=== PATIENT | female | born 1955 | race Caucasian/White ===

== ENCOUNTER → 2018-03-10 06:58 | Outpatient (CLI) | payer OTHER, SELFPAY ==
--- NOTE | 2018-03-10 07:02 | BI_ITS ---
MAMMOGRAPHY - BILATERAL SCREENING REASON FOR EXAM: Female, 63 years old. Routine annual screening examination. PERTINENT HISTORY: Non-contributory. History of lymphoma. TECHNIQUE: Digital bilateral breast jasmine (3D mammographic acquisition) in the CC and MLO projections. 2-D mediolateral oblique (MLO) and craniocaudad (CC) views of both breasts were obtained. CAD: Full Field Digital Mammography with Computer Added Detection was performed. COMPARISON: Comparison is made with prior examination of January 13, 2017. FINDINGS: Breast Composition: There are scattered areas of fibroglandular density. There are no dominant masses or suspicious calcifications. The previously seen enlarged left axillary lymph node is not seen at this time and most likely secondary to prior surgical resection versus treatment. No other significant abnormalities are identified. There has been no significant change since the prior study. BI/SCREENING MAMM (CAD), BILAT IMPRESSION: Stable bilateral screening mammogram. Yearly follow-up mammogram recommended. (A) ASSESSMENT CATEGORY: BIRADS Category 1: Negative. A letter regarding these results will be sent to the patient by the facility within 30 days. Approximately 10% of breast cancers are not detected by mammography. A normal mammogram should not delay biopsy of a clinically suspicious abnormality. [id number] Electronically Signed: Juan Rivera MD at 8:53 EDT Tel [phone], Service support ,
== END ==
PROVIDERS: Visit Provider Nurse Practitioner Women's Health
DX: Z12.31 Encounter for screening mammogram for malignant neoplasm of breast (principal)
CPT/HCPCS: 77063; 77067

== ENCOUNTER → 2018-03-23 19:10 | Outpatient (CLI) | payer OTHER, SELFPAY ==
[2018-03-28 10:07] LABS: HPV APTIMA, High Risk Negative (Negative)
== END ==
PROVIDERS: Visit Provider Nurse Practitioner Women's Health
DX: Z12.4 Encounter for screening for malignant neoplasm of cervix (principal)
CPT/HCPCS: 88175; G0145

== ENCOUNTER → 2019-01-24 14:43 | Outpatient (CLI) | payer OTHER, SELFPAY ==
[2019-01-24 14:09] VITALS: BMI 24.0
[2019-01-24 16:19] LABS: HIV - WCH Non-Reactive (Nonreactive)
[2019-01-24 18:44] LABS: Chlamydia Trachomatis by PCR Negative (Negative); Neisserai gonorrhoeae by PCR Negative (Negative); Probe Check PASS; Sample Adequacy Control PASS; Specimen Processing Control PASS
[2019-01-27 03:06] LABS: HCV Quant. RNA PCR HCV Not Detected IU/mL (.)
[2019-01-27 14:30] LABS: HEPATITIS B SURFACE AG Negative (Negative); HSV 1 IgG 2.12 index (0.00-0.90); HSV 2 IgG 8.72 index (0.00-0.90)
[2019-01-28 03:28] LABS: Rapid Plasmin Reagin (RPR) NONREACTIVE (NONREACTIVE)
== END ==
PROVIDERS: Family Provider Internal Medicine; PCP Internal Medicine; Referring Provider Nurse Practitioner Women's Health; Visit Provider Nurse Practitioner Women's Health
DX: Z11.3 Encounter for screening for infections with a predominantly sexual mode of transmission (principal)
CPT/HCPCS: 36415; 86592; 86695; 86696; 86703; 87340; 87491; 87522; 87591

== ENCOUNTER → 2020-05-18 07:45 | Outpatient (CLI) | payer OTHER, SELFPAY ==
[2019-01-24 14:09] VITALS: BMI 24.0
--- NOTE | 2020-05-18 07:57 | BI_ITS ---
MAMMOGRAPHY - BILATERAL SCREENING REASON FOR EXAM: Female, 65 years old. Routine annual screening examination. PERTINENT HISTORY: Non-contributory. History of lymphoma. TECHNIQUE: Digital bilateral breast margi (3D mammographic acquisition) in the CC and MLO projections. 2-D mediolateral oblique (MLO) and craniocaudad (CC) views of both breasts were obtained. CAD: Full Field Digital Mammography with Computer Added Detection was performed. COMPARISON: Comparison is made with prior study dated 03/10/2018. FINDINGS: Breast Composition: There are scattered areas of fibroglandular density. There are no dominant masses or suspicious calcifications. No other significant abnormalities are identified. There has been no significant change since the prior study. BI/SCREEN MAMM (CAD) W/MARGI BILAT IMPRESSION: Stable bilateral screening mammogram. Yearly follow-up mammogram recommended. (A) ASSESSMENT CATEGORY: BIRADS Category 1: Negative. A letter regarding these results will be sent to the patient by the facility within 30 days. Approximately 10% of breast cancers are not detected by mammography. A normal mammogram should not delay biopsy of a clinically suspicious abnormality. [id number] Electronically Signed: Juan Rivera, at 8:58 EDT , Service support ,
== END ==
PROVIDERS: PCP Internal Medicine; Referring Provider Nurse Practitioner Women's Health; Visit Provider Nurse Practitioner Women's Health
DX: Z12.31 Encounter for screening mammogram for malignant neoplasm of breast (principal)
CPT/HCPCS: 77063; 77067

== ENCOUNTER → 2020-05-30 | Outpatient (CLI) | payer OTHER, SELFPAY ==
[2020-05-30 15:17] VITALS: BMI 24.0
== END | disposition home or self-care (01) ==
LOC: LABSPEC 18:14
PROVIDERS: PCP Internal Medicine; Visit Provider Nurse Practitioner Women's Health
DX: N39.0 Urinary tract infection, site not specified (principal)
CPT/HCPCS: 87077; 87086; 87088; 87186

== ENCOUNTER → 2021-05-23 08:19 | Outpatient (CLI) | payer OTHER, SELFPAY ==
--- NOTE | 2021-05-23 08:21 | BI_ITS ---
MAMMOGRAPHY - BILATERAL SCREENING REASON FOR EXAM: Female, 66 years old. Routine annual screening examination. PERTINENT HISTORY: Non-contributory. Personal history of prior lymphoma. TECHNIQUE: Digital bilateral breast margi (3D mammographic acquisition) in the CC and MLO projections. 2-D mediolateral oblique (MLO) and craniocaudad (CC) views of both breasts were obtained. CAD: Full Field Digital Mammography with Computer Added Detection was performed. COMPARISON: Comparison is made with prior examination dated 05/18/2020 and 03/10/2018. FINDINGS: Breast Composition: There are scattered areas of fibroglandular density. There are no dominant masses or suspicious calcifications. No other significant abnormalities are identified. There has been no significant change since the prior study. BI/SCRN MAMM (CAD)W/MARGI BILAT IMPRESSION: Stable bilateral screening mammogram. Yearly follow-up mammogram recommended. (A) ASSESSMENT CATEGORY: BIRADS Category 1: Negative. A letter regarding these results will be sent to the patient by the facility within 30 days. Approximately 10% of breast cancers are not detected by mammography. A normal mammogram should not delay biopsy of a clinically suspicious abnormality. [id number] Electronically Signed: Juan Rivera MD at 9:05 EDT , Service support ,
== END ==
PROVIDERS: PCP Internal Medicine; Referring Provider Nurse Practitioner Women's Health; Visit Provider Nurse Practitioner Women's Health
DX: Z12.31 Encounter for screening mammogram for malignant neoplasm of breast (principal)
CPT/HCPCS: 77063; 77067

== ENCOUNTER → 2022-09-02 | Outpatient (CLI) | payer OTHER, SELFPAY ==
--- NOTE | 2022-09-02 08:00 | BI_ITS ---
MAMMOGRAPHY - BILATERAL SCREENING REASON FOR EXAM: Female, 67 years old. Routine annual screening examination. PERTINENT HISTORY: Non-contributory. TECHNIQUE: Digital bilateral breast margi (3D mammographic acquisition) in the CC and MLO projections. 2-D mediolateral oblique (MLO) and craniocaudad (CC) views of both breasts were obtained. CAD: Full Field Digital Mammography with Computer Added Detection was performed. COMPARISON: Comparison is made with prior examination dated 07/23/2021 05/18/2001. FINDINGS: Breast Composition: There are scattered areas of fibroglandular density. There are no dominant masses or suspicious calcifications. No other significant abnormalities are identified. There has been no significant change since the prior study. BI/SCRN MAMM (CAD)W/MARGI BILAT IMPRESSION: Stable bilateral screening mammogram. Yearly follow-up mammogram recommended. (A) ASSESSMENT CATEGORY: BIRADS Category 1: Negative. A letter regarding these results will be sent to the patient by the facility within 30 days. Approximately 10% of breast cancers are not detected by mammography. A normal mammogram should not delay biopsy of a clinically suspicious abnormality. [id number] Electronically Signed: Juan Rivera MD at 10:23 EST ,
== END | disposition home or self-care (01) ==
LOC: OPBI 07:58
PROVIDERS: PCP Internal Medicine; Referring Provider Nurse Practitioner Women's Health; Visit Provider Nurse Practitioner Women's Health
DX: Z12.31 Encounter for screening mammogram for malignant neoplasm of breast (principal)
CPT/HCPCS: 77063; 77067

== ENCOUNTER → 2023-10-06 | Outpatient (CLI) | payer OTHER, SELFPAY ==
--- OUTSIDE RECORDS SUMMARY | 2023-10-06 16:43 | XMS RPT_ITS | CCD ---
Author Name Unknown Address [address] [place] [address] Organization [facility] Care Team Providers Care Route Delivery Driver Name Role Phone No, Physician Primary Care Provider Unavailabl e NO, PHYSICIAN Primary Care Unavailable YOLANDA RUIZ Attending Unavailable NO, PHYSICIAN Primary Care Unavailable KAYLYNN HYLTON Attending Unavailable Edson RITTER, [facility] Primary Care Provider Edson RITTER, Marissa Primary Care Provider Edson RITTER, Marissa Primary Care Provider GANTA, MARISSA Primary Care Unavailable MASCI, CEM A Referring Unavailable GANTA, MARISSA Primary Care Unavailable ALBERTO SYLVESTER Attending Unavailable MASCI, CEM A Referring Unavailable GANTA, MARISSA Primary Care Unavailable TRISHA DE LA CRUZ Referring Unavailable GANTA, MARISSA Primary Care Unavailable JACOB CANNON Attending Unavailable OLDER, NAYA Referring Unavailable GANTA, MARISSA Primary Care Unavailable OLDER, NAYA Referring Unavailable GANTA, MARISSA Primary Care Unavailable MASCI, CEM A Referring Unavailable GANTA, MARISSA Primary Care Unavailable OLDERNAYA Attending Unavailable OLDER, NAYA Referring Unavailable GANTA, MARISSA Primary Care Unavailable MASCI, CEM A Referring Unavailable GANTA, MARISSA Primary Care Unavailable GANTA, MARISSA Primary Care Unavailable MASCI, CEM A Attending Unavailable MASCI, CEM A Referring Unavailable GANTA, MARISSA Primary Care Unavailable BLAYNE HAWK Referring Unavailable GANTA, MARISSA Primary Care Unavailable Allergies Allergy Classification Reported Allergen(s) Allergy Type Date of Onset Reaction(s) Facility (20 sources) diphenhydrAMINE ; Translations: [DIPHENHYDRAMIN E] Drug Allergy 3 Other: See Comments, Unknown [facility] (20 sources) Erythromycin; Translations: [ERYTHROMYCIN BASE] Drug Allergy 5 GI Upset [facility] (20 sources) Meperidine; Translations: [OPIOIDS-MEPERI DINE AND RELATED] Drug Allergy 9 Intolerance [facility] (20 sources) Chromic sutures [Other] Propensity to adverse reactions 6 Swelling [facility] Work Phone: (1 source) OTHER; Translations: [OTHER] Propensity to adverse reactions (disorder) 6 [facility] Medications Current Medications Medication Drug Class(es) Dates Sig (Normalized) Sig (Original) amoxicillin 875 mg / clavulanate 125 mg oral tablet (3 sources) Penicillin-class Antibacterial Start: 12-18-2021 End: 12-28-2021 take 1 tablet by mouth twice daily amoxicillin-clavu lanic acid (AUGMENTIN) 875-125 mg per tablet Indications: Acute sinusitis, recurrence not specified, unspecified location Take 1 tablet by mouth twice daily for 10 days. 20 tablet 0 12/18/2021 12/28/2021 Active Completed/Discontinued Medications Medication Drug Class(es) Dates Sig (Normalized) Sig (Original) acetaminophen 500 mg oral tablet (20 sources) take 2 tablets by mouth every six hours as needed acetaminophen (TYLENOL) 500 mg tablet Take 1,000 mg by mouth every 6 hours as needed. 0 Active Problems Active Problems Problem Classification Problem Date Documented Da te Episodic/Chronic Abdominal pain (4 sources) Right inguinal pain; Translations: [Right lower quadrant pain] Episodic Anxiety disorders (1 source) Other specified anxiety disorders; Translations: [Anxiety with depression] Onset: 12-04-2022 Chronic Disorders of lipid metabolism (4 sources) Mixed hyperlipidemia; Translations: [Mixed hyperlipidemia] Onset: 10-09-2022 Chronic Immunizations and screening for infectious disease (2 sources) Needs influenza immunization; Translations: [Encounter for immunization] Episodic Malaise and fatigue (1 source) Fatigue; Translations: [Other fatigue] 07-23-2023 Episodic Non-Hodgkin`s lymphoma (20 sources) 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; Translations: [Follicular lymphoma, unspecified, 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] Onset: 12-19-2008 12-19-2008 Chronic Nutritional deficiencies (1 source) Vitamin D deficiency, unspecified; Translations: [Vitamin D deficiency] Onset: 12-04-2022 Chronic Osteoporosis (15 sources) Osteoporosis; Translations: [Age-related osteoporosis without current pathological fracture] Onset: 05-01-2022 05-01-2022 Chronic Other aftercare (2 sources) Patient encounter status; Translations: [Other intermediate card tender (current) drug therapy] Episodic Other infections; including parasitic (1 source) Personal history of other infectious and parasitic diseases; Translations: [History of COVID-19] Episodic Other lower respiratory disease (2 sources) Multiple nodules of lung; Translations: [Other nonspecific abnormal finding of lung field] Episodic Other screening for suspected conditions (not mental disorders or infectious disease) (2 sources) CT of chest abnormal; Translations: [Abnormal findings on diagnostic imaging of other specified body structures] Chronic Other upper respiratory infections (1 source) Acute sinusitis; Translations: [Acute sinusitis, unspecified] Episodic Residual codes; unclassified (1 source) Other general symptoms and signs; Translations: [Suspected 2019 Novel Coronavirus Infection] Episodic Unclassified (5 sources) COVID-19; Translations: [COVID-19] Onset: 07-30-2020 07-30-2020 Past or Other Problems Problem Classification Problem Date Documented Da te Episodic/Chronic Inflammatory diseases of female pelvic organs (20 sources) Female pelvic peritoneal adhesions; Translations: [Female pelvic peritoneal adhesions (postinfective)] Onset: 07-26-2007 07-26-2007 Episodic Non-Hodgkin`s lymphoma (1 source) Personal history of non-Hodgkin lymphomas; Translations: [History of lymphoma] Onset: 12-04-2022 Episodic Other bone disease and musculoskeletal deformities (20 sources) Osteopenia; Translations: [Other specified disorders of bone density and structure, unspecified site] Onset: 05-25-2014 05-25-2014 Episodic Other lower respiratory disease (1 source) Other nonspecific abnormal finding of lung field; Translations: [Lung nodules] Onset: 10-09-2022 Episodic Other non-epithelial cancer of skin (20 sources) Malignant neoplasm of skin of face; Translations: [Other and unspecified malignant neoplasm of skin of other and unspecified parts of face] Onset: 12-03-2005 12-03-2005 Episodic Results Test Name Value Interpretation Reference Range Facil ity Vital Signs Date Time Vital Sign Value Performing Clinician Faci lity 07-23-2023 18:56-0500 Body temperature 99 [degF] Nayeli Desai PLANT MAINTENANCE WORKER.NUCLEAR FUEL ENRICHMENT TECHNICIAN Work Phone: [facility] 07-23-2023 18:56-0500 Body weight 59.42 kg Nayeli Desai PLANT MAINTENANCE WORKER.NUCLEAR FUEL ENRICHMENT TECHNICIAN Work Phone: [facility] 07-23-2023 18:56-0500 Diastolic blood pressure 74 mm[Hg] Nayeli Desai PLANT MAINTENANCE WORKER.NUCLEAR FUEL ENRICHMENT TECHNICIAN Work Phone: [facility] 07-23-2023 18:56-0500 Heart rate 97 /min Nayeli Desai PLANT MAINTENANCE WORKER.NUCLEAR FUEL ENRICHMENT TECHNICIAN Work Phone: [facility] 07-23-2023 18:56-0500 Respiratory rate 18 /min Nayeli Desai PLANT MAINTENANCE WORKER.NUCLEAR FUEL ENRICHMENT TECHNICIAN Work Phone: [facility] 07-23-2023 18:56-0500 SaO2% (BldA) [Mass fraction] 97 % Nayeli Desai PLANT MAINTENANCE WORKER.NUCLEAR FUEL ENRICHMENT TECHNICIAN Work Phone: [facility] 07-23-2023 18:56-0500 Systolic blood pressure 150 mm[Hg] Nayeli Desai PLANT MAINTENANCE WORKER.NUCLEAR FUEL ENRICHMENT TECHNICIAN Work Phone: [facility] 11-03-2022 08:14-0500 Body height 149.9 cm Shickley Sylvester PLANT MAINTENANCE WORKER.NUCLEAR FUEL ENRICHMENT TECHNICIAN Work Phone: [facility] 11-03-2022 08:14-0500 Body temperature 98.29 [degF] Shickley Sylvester PLANT MAINTENANCE WORKER.NUCLEAR FUEL ENRICHMENT TECHNICIAN Work Phone: [facility] 11-03-2022 08:14-0500 Body weight 58.74 kg Shickley Sylvester PLANT MAINTENANCE WORKER.NUCLEAR FUEL ENRICHMENT TECHNICIAN Work Phone: [facility] 11-03-2022 08:14-0500 Diastolic blood pressure 88 mm[Hg] Shickley Sylvester PLANT MAINTENANCE WORKER.NUCLEAR FUEL ENRICHMENT TECHNICIAN Work Phone: [facility] 11-03-2022 08:14-0500 Heart rate 92 /min Shickley Sylvester PLANT MAINTENANCE WORKER.NUCLEAR FUEL ENRICHMENT TECHNICIAN Work Phone: [facility] 11-03-2022 08:14-0500 Systolic blood pressure 134 mm[Hg] Shickley Sylvester PLANT MAINTENANCE WORKER.NUCLEAR FUEL ENRICHMENT TECHNICIAN Work Phone: [facility] 06-12-2022 08:02-0400 Body weight 58.97 kg Trisha De La Cruz MD Work Phone: [facility] 05-29-2022 08:24-0400 Body weight 58.97 kg Naya Older PLANT MAINTENANCE WORKER.NUCLEAR FUEL ENRICHMENT TECHNICIAN Work Phone: [facility] 05-29-2022 08:24-0400 Diastolic blood pressure 70 mm[Hg] Naya Older PLANT MAINTENANCE WORKER.NUCLEAR FUEL ENRICHMENT TECHNICIAN Work Phone: [facility] 05-29-2022 08:24-0400 Heart rate 68 /min Naya Older PLANT MAINTENANCE WORKER.NUCLEAR FUEL ENRICHMENT TECHNICIAN Work Phone: [facility] 05-29-2022 08:24-0400 Respiratory rate 16 /min Naya Older PLANT MAINTENANCE WORKER.NUCLEAR FUEL ENRICHMENT TECHNICIAN Work Phone: [facility] 05-29-2022 08:24-0400 Systolic blood pressure 136 mm[Hg] Naya Older PLANT MAINTENANCE WORKER.NUCLEAR FUEL ENRICHMENT TECHNICIAN Work Phone: [facility] 05-05-2022 10:03-0400 Body temperature 98.49 [degF] Cem Masci DO Work Phone: [facility] 05-05-2022 10:03-0400 Body weight 59.19 kg Cem Masci DO Work Phone: [facility] 05-05-2022 10:03-0400 Diastolic blood pressure 72 mm[Hg] Cem Masci DO Work Phone: [facility] 05-05-2022 10:03-0400 Heart rate 93 /min Cem Masci DO Work Phone: [facility] 05-05-2022 10:03-0400 Systolic blood pressure 125 mm[Hg] Cem Masci DO Work Phone: [facility] 12-25-2021 09:30-0400 Body temperature 98.91 [degF] Alberto Sylvester PLANT MAINTENANCE WORKER.NUCLEAR FUEL ENRICHMENT TECHNICIAN Work Phone: [facility] 12-25-2021 09:30-0400 Body weight 58.06 kg Shickley Sylvester PLANT MAINTENANCE WORKER.NUCLEAR FUEL ENRICHMENT TECHNICIAN Work Phone: [facility] 12-25-2021 09:30-0400 Diastolic blood pressure 71 mm[Hg] Alberto Sylvester PLANT MAINTENANCE WORKER.NUCLEAR FUEL ENRICHMENT TECHNICIAN Work Phone: [facility] 12-25-2021 09:30-0400 Heart rate 94 /min Shickley Sylvester PLANT MAINTENANCE WORKER.NUCLEAR FUEL ENRICHMENT TECHNICIAN Work Phone: [facility] 12-25-2021 09:30-0400 SaO2% (BldA) [Mass fraction] 99 % Shickley Sylvester PLANT MAINTENANCE WORKER.NUCLEAR FUEL ENRICHMENT TECHNICIAN Work Phone: [facility] 12-25-2021 09:30-0400 Systolic blood pressure 139 mm[Hg] Alberto Sylvester PLANT MAINTENANCE WORKER.NUCLEAR FUEL ENRICHMENT TECHNICIAN Work Phone: [facility] 12-18-2021 10:53-0400 Body temperature 98.71 [degF] Mary Kate Praisler-Wood PLANT MAINTENANCE WORKER.NUCLEAR FUEL ENRICHMENT TECHNICIAN Work Phone: [facility] 12-18-2021 10:53-0400 Body weight 58.06 kg Mary Kate Praisler-Wood PLANT MAINTENANCE WORKER.NUCLEAR FUEL ENRICHMENT TECHNICIAN Work Phone: [facility] 12-18-2021 10:53-0400 Diastolic blood pressure 72 mm[Hg] Mary Kate Praisler-Wood PLANT MAINTENANCE WORKER.NUCLEAR FUEL ENRICHMENT TECHNICIAN Work Phone: [facility] 12-18-2021 10:53-0400 Heart rate 110 /min Mary Kate Praisler-Wood PLANT MAINTENANCE WORKER.NUCLEAR FUEL ENRICHMENT TECHNICIAN Work Phone: [facility] 12-18-2021 10:53-0400 Respiratory rate 18 /min Mary Kate Praisler-Wood PLANT MAINTENANCE WORKER.NUCLEAR FUEL ENRICHMENT TECHNICIAN Work Phone: [facility] 12-18-2021 10:53-0400 SaO2% (BldA) [Mass fraction] 99 % Mary Kate Praisler-Wood PLANT MAINTENANCE WORKER.NUCLEAR FUEL ENRICHMENT TECHNICIAN Work Phone: [facility] 12-18-2021 10:53-0400 Systolic blood pressure 144 mm[Hg] Mary Kate Praisler-Wood PLANT MAINTENANCE WORKER.NUCLEAR FUEL ENRICHMENT TECHNICIAN Work Phone: [facility] 08-07-2020 13:00-0500 BMI (Body Mass Index) 24.24 kg/m2 Kaylynn Hylton [facility] 08-07-2020 13:00-0500 Body Temperature 98.49 [degF] Kaylynn Hylton [facility] 08-07-2020 13:00-0500 Body weight 54.43 kg Kaylynn Hylton [facility] 08-07-2020 13:00-0500 Height 149.9 cm Kaylynn Hylton [facility] 08-07-2020 13:00-0500 Pulse (Heart Rate) 85 /min Kaylynn [facility] 08-07-2020 13:00-0500 Pulse Oximetry 98 % Kaylynn [facility] 07-30-2020 17:56-0500 BMI (Body Mass Index) 24.24 kg/m2 Yolanda Ruiz [facility] 07-30-2020 17:56-0500 Body weight 54.43 kg Yolanda Ruiz [facility] 07-30-2020 17:56-0500 Height 149.9 cm Yolanda Ruiz [facility] Encounters Encounter Date Encounter Type Care Provider Facility Start: 07-23-2023 End: 07-23-2023 ambulatory [facility] Facility:[facility] Start: 07-23-2023 End: 07-23-2023 Patient encounter procedure Nayeli Desai PLANT MAINTENANCE WORKER.NUCLEAR FUEL ENRICHMENT TECHNICIAN Work Phone: [facility] Care Procedures Date Procedure Procedure Detail Performing Clinician Start: 04-28-2023 Radiologic exam ches t 2 views Blayne Hawk PLANT MAINTENANCE WORKER.NUCLEAR FUEL ENRICHMENT TECHNICIAN Work Phone: Start: 10-09-2022 Ct thorax w/o contra st material Trisha De La Cruz MD Work Phone: Start: 10-09-2022 Lipid 1996 panel - S robin or Plasma Ct (I-Stat) Work Phone: Start: 09-02-2022 Mammography Trisha De La Cruz MD Work Phone: Start: 05-29-2022 INFLUENZA SEASONAL QUADRIVALENT HIGH DOSE AGE 65+ Naya Older PLANT MAINTENANCE WORKER.NUCLEAR FUEL ENRICHMENT TECHNICIAN Work Phone: Start: 03-05-2022 Ct thorax w/contrast material Alberto Sylvester PLANT MAINTENANCE WORKER.NUCLEAR FUEL ENRICHMENT TECHNICIAN Work Phone: Start: 01-08-2022 Ct abdomen & pelvis w/contrast material Alberto Ashenter PLANT MAINTENANCE WORKER.NUCLEAR FUEL ENRICHMENT TECHNICIAN Work Phone: Start: 12-25-2021 Adult depression scr eening assessment Alberto Ashenter PLANT MAINTENANCE WORKER.NUCLEAR FUEL ENRICHMENT TECHNICIAN Work Phone: Start: 11-14-2021 Colonoscopy Mary Katecesar guerra-Rayray PLANT MAINTENANCE WORKER.NUCLEAR FUEL ENRICHMENT TECHNICIAN Work Phone: Start: 04-24-2021 Adult depression scr eening assessment Mary Kate Preston PLANT MAINTENANCE WORKER.NUCLEAR FUEL ENRICHMENT TECHNICIAN Work Phone: Start: 08-07-2020 COVID-19, MOLECULAR Temo ie Raven Hylton Work Phone: Start: 07-30-2020 COVID-19, MOLECULAR Pat nabor Arelis Ruiz Work Phone: Start: 05-18-2020 Mammography Mary Katecesar guerra-Rayray PLANT MAINTENANCE WORKER.[facility] Work Phone: Plan of Treatment Date Care Activity Detail Author Start: 11-15-2031 Colonoscopy COLONOSCOPY [facility] Start: 11-15-2031 COLORECTAL CANCER SCREENING COLORECTAL CANCER SCREENING [facility] Start: 10-09-2027 Lipid 1996 panel - S robin or Plasma Lipid Screening [facility] Start: 10-09-2027 LIPID SCREEN LIPID SCREEN [facility] Start: 05-01-2027 LIPID SCREEN LIPID SCREEN [facility] Start: 08-15-2026 LIPID SCREEN LIPID SCREEN [facility] Start: 05-04-2026 Diabetes Screening Diabetes Screenin g [facility] Start: 11-03-2025 DIABETES SCREEN DIABETES SCREEN [facility] Start: 05-05-2025 DIABETES SCREEN DIABETES SCREEN [facility] Start: 12-25-2024 DIABETES SCREEN DIABETES SCREEN [facility] Start: 10-29-2024 DIABETES SCREEN DIABETES SCREEN [facility] Start: 12-05-2023 COVID-19 VACCINE (5 - Pfizer risk series) COVID-19 VACCINE (5 - Pfizer risk series) [facility] Immunizations Immunization Date Immunization Notes Care Provider Loc adams 07-22-2023 influenza (HD-IIV4) vaccine, age 65+ yr, high dose, quadrivalent, PF (FLUZONE HIGH-DOSE) Nayeli Desai PLANT MAINTENANCE WORKER.NUCLEAR FUEL ENRICHMENT TECHNICIAN Work Phone: [facility] 07-22-2023 pneumococcal (PCV20) vaccine, 20 valent (PREVNAR 20) Nayeli Desai PLANT MAINTENANCE WORKER.NUCLEAR FUEL ENRICHMENT TECHNICIAN Work Phone: [facility] 05-29-2022 influenza, high-dose , quadrivalent vaccine (FLUZONE HIGH DOSE QUADRIVALENT) Naya Rubin PLANT MAINTENANCE WORKER.NUCLEAR FUEL ENRICHMENT TECHNICIAN Work Phone: [facility] 05-29-2022 influenza virus vacc ine, unspecified formulation Ct (I-Stat) Work Phone: [facility] 05-05-2022 COVID-19 vaccine, ag e 12+ yr (PFIZER-BIONTECH - PURPLE TOP) Naya Rubin PLANT MAINTENANCE WORKER.NUCLEAR FUEL ENRICHMENT TECHNICIAN Work Phone: [facility] 10-03-2021 pneumococcal polysaccharide vaccine, 23 valent Mary Kate Preston PLANT MAINTENANCE WORKER.[facility] Work Phone: [facility] Work Phone: 12-18-2020 COVID-19 vaccine, ag e 12+ yr (PFIZER-BIONTECH - PURPLE TOP) Mary Kate Preston PLANT MAINTENANCE WORKER.NUCLEAR FUEL ENRICHMENT TECHNICIAN Work Phone: [facility] 11-27-2020 COVID-19 vaccine, ag e 12+ yr (PFIZER-BIONTECH - PURPLE TOP) Mary Kate Preston PLANT MAINTENANCE WORKER.NUCLEAR FUEL ENRICHMENT TECHNICIAN Work Phone: [facility] 07-26-2019 influenza, injectabl e, quadrivalent, preservative free Mary Kate Preston PLANT MAINTENANCE WORKER.NUCLEAR FUEL ENRICHMENT TECHNICIAN Work Phone: [facility] 06-14-2011 influenza virus vacc ine, unspecified formulation Mary Kate Preston PLANT MAINTENANCE WORKER.NUCLEAR FUEL ENRICHMENT TECHNICIAN Work Phone: [facility] Work Phone: 06-18-2009 pneumococcal polysaccharide vaccine, 23 valent Mary Kate Preston PLANT MAINTENANCE WORKER.NUCLEAR FUEL ENRICHMENT TECHNICIAN Work Phone: [facility] 05-15-2009 influenza virus vacc ine, unspecified formulation Mary Katecesar Preston APRN.NUCLEAR FUEL ENRICHMENT TECHNICIAN Work Phone: [facility] Payers Date Payer Category Payer Unknown [id number] 2019 Unknown [id number] 2019 Unknown [id number] 1960 Unknown [id number] 1961 Unknown [id number] Social History Date Type Detail Facility Start: 07-30-2020 End: 08-07-2020 Tobacco smoking status [facility] Never smoker [facility] Start: 07-30-2020 End: 06-12-2022 Tobacco use and exposure Never used [facility] Start: 1955 Sex Assigned At Not on file O [facility] Exposure to SARS-CoV -2 (event) Yes [facility] Start: 06-26-2010 End: 06-12-2022 Tobacco smoking status [facility] Ex-smoker [facility] Work Phone: End: 12-21-1995 History of tobacco use Current smoker [facility] Work Phone: End: 12-21-1995 History of tobacco use Cigarette Smoker [facility] Work Phone: Start: 12-18-2021 End: 07-23-2023 Alcohol intake Current non-drinker of alcohol (finding) [facility] Start: 12-08-2021 End: 05-05-2022 Exposure to SARS-CoV-2 (event) Not sure [facility] Work Phone: Start: 06-26-2010 End: 05-04-2023 Cigarettes smoked current (pack per day) - Reported 0.8 [facility] Start: 04-21-2022 End: 05-29-2022 Exposure to SARS-CoV-2 (event) Unable to assess [facility] Start: 05-27-2022 History SDOH Alcohol Frequency 2 [facility] Start: 05-27-2022 History SDOH Alcohol Std Drinks 1 [facility] Start: 05-27-2022 History SDOH Social Connections Phone 5 [facility] Start: 05-27-2022 History SDOH Social Connections Living 3 [facility] Start: 05-27-2022 History SDOH Physica l Activity DPW 4 [facility] Start: 05-27-2022 End: 05-04-2023 Social connection and isolation panel [facility] Do you belong to any clubs or organizations such as baptism groups, unions, fraternal or athletic groups, or school groups? No [facility] Are you now , , , , never or living with a partner? [facility] How often to you hav e a drink containing alcohol? Monthly or less [facility] How many standard dr inks containing alcohol do you have on a typical day? 1 or 2 [facility] How often do you hav e 6 or more drinks on 1 occasion? Never [facility] How hard is it for y ou to pay for the very basics like food, housing, medical care, and heating Not very hard [facility] Adult Depression Screening Assessment 0 [facility] Work Phone: Do you feel stress - tense, restless, nervous, or anxious, or unable to sleep at night because your mind is troubled all the time - these days [OSQ] Only a little [facility] (I/We) worried wheth er (my/our) food would run out before (I/we) got money to buy more. Never true [facility] Clinical Notes 08-11-2017 to 07-23-2023 Nayeli Desai APRN.CNP - 07/23/2023 7:24 PM ESTTelephone Encounter - Alondra Calero LPN - 04/28/2023 7:58 PM EDTTelephone Encounter - Blayne Hakw APRN.CNP - 04/28/2023 5:16 PM EDT Note Date & Type Note Facility 07-23-2023 Note HNO ID: [id number] Author: Nayeli Desai APRN.CNP Service: ? Author Type: Nurse Practitioner Type: Progress Notes Filed: 07/23/2023 7:31 PM Note Text: This note was created using menuvoxriter. Subjective Eneida Priest is a 68 year old female. 68 year old female with PMH osteopenia presents for COVID concerns. Acute onset today +fatigue Denies accompanying URI sx Denies cough Denies fatigue Denies malaise Denies skin rash or lesions. She underwent her flu and pneumonia vaccine yesterday +exposure to COVID 5 days ago States home test negative Just want to be sure The history is provided by the patient. No american sign language interpreter was used. Fatigue This is a new problem. The current episode started today. The problem occurs constantly. The problem has been unchanged. Associated symptoms include fatigue. Pertinent negatives include no abdominal pain, anorexia, arthralgias, change in bowel habit, chest pain, chills, congestion, coughing, diaphoresis, fever, headaches, joint swelling, myalgias, nausea, neck pain, numbness, rash, sore throat, swollen glands, urinary symptoms, vertigo, visual change, vomiting or weakness. Nothing aggravates the symptoms. She has tried nothing for the symptoms. The treatment provided no relief. PAST MEDICAL HISTORY Diagnosis Date Allergic rhinitis, cause unspecified Allergic rhinitis Disorder of bone and cartilage, unspecified osteopenia Mental disorder anxiety Other malignant lymphomas, unspecified site, extranodal and solid organ sites Lymphoma non-hodgkins PAST SURGICAL HISTORY Procedure Laterality Date DELIVERY ONLY DELIVERY ONLY DELIVERY ONLY DELIVERY ONLY COLONOSCOPY 11/14/2021 COLONOSCOPY FLX DX W/COLLJ SPEC WHEN PFRMD 12/03/2011 repeat 10 years EGD 11/14/2021 MAL LESION FACE,EAR,EYEL 1.1-2CM 12/03/2005 Excision right cheek/nasal lesion MAL LESION FACE,EAR,EYEL <5MM 03/11/2006 Excision right nasal bridge lesion MAL LESION TRUNK,ARM,LEG 1.1-2.0 CM 12/17/2005 Excision left posterior neck lesion SALPINGOSTOMY reversal TOTAL ABDOMINAL HYSTERECT W/WO RMVL TUBE OVARY 07/20/2007 ENRRIQUE/RSO for cyst, adhesions, adenomyosis ALLERGIES Opioids-Meperidine And Related, Chromic Sutures [Other], Erythromycin Base, and Diphenhydramine MEDICATIONS sertraline (ZOLOFT) 50 mg tablet Take 1 tablet by mouth once daily. rosuvastatin (CRESTOR) 5 mg tablet TAKE 1 TABLET BY MOUTH ONCE DAILY AT BEDTIME fluticasone (FLONASE) 50 mcg/actuation nasal spray Use 2 Sprays in each nostril once daily. Rinse mouth after use. acetaminophen (TYLENOL) 500 mg tablet Take 1,000 mg by mouth every 6 hours as needed. ibuprofen (MOTRIN) 200 mg tablet Take 400 mg by mouth every 6 hours as needed. alendronate (FOSAMAX) 70 mg tablet Take 1 tablet by mouth one time a week. Take with a full glass of water, on an empty stomach; do NOT lie down for 30minutes. Cholecalciferol, Vitamin D3, 50 mcg (2,000 unit) cap Take 1 capsule by mouth once daily. FAMILY HISTORY Problem Relation Age of Onset Osteoporosis Mother Diabetes Maternal Uncle Diabetes Maternal Uncle Diabetes Maternal Uncle Social History Tobacco Use Smoking status: Former Packs/day: 0.75 Years: 15.00 Additional pack years: 0.00 Total pack years: 11.25 Types: Cigarettes Quit date: 12/21/1995 Years since quittin.6 Smokeless tobacco: Never Vaping Use Vaping Use: Never used Substance Use Topics Alcohol use: No Drug use: No Review of Systems Constitutional: Positive for fatigue and malaise/fatigue. Negative for chills, diaphoresis and fever. HENT: Negative for congestion and sore throat. Respiratory: Negative for apnea, cough, choking and chest tightness. Cardiovascular: Negative for chest pain. Gastrointestinal: Negative for abdominal pain, anorexia, change in bowel habit, nausea and vomiting. Musculoskeletal: Negative for arthralgias, joint swelling, myalgias and neck pain. Skin: Negative for rash. Allergic/Immunologic: Negative for environmental allergies, food allergies and immunocompromised state. Neurological: Negative for vertigo, weakness, numbness and headaches. Hematological: Negative for adenopathy. Does not bruise/bleed easily. Psychiatric/Behavioral: Negative for agitation and behavioral problems. Objective BP 150/74 Pulse 97 Temp 37.2 ?C (99 ?F) Resp 18 Wt 59.4 kg (131 lb) LMP 06/04/2007 SpO2 97% BMI 26.46 kg/m? Physical Exam Vitals and nursing note reviewed. Constitutional: General: She is not in acute distress. Appearance: Normal appearance. She is normal weight. She is not ill-appearing, toxic-appearing or diaphoretic. HENT: Head: Normocephalic and atraumatic. Right Ear: Ear canal and external ear normal. Left Ear: Ear canal and external ear normal. Nose: Nose normal. No congestion or rhinorrhea. Mouth/Throat: Mouth: Mucous membranes are moist. P (more content not included)... [facility] 07-23-2023 History of Presen t illness Narrative This note was created using NoteWriter. Subjective Eneida Priest is a 68 year old female. 68 year old female with PMH osteopenia presents for COVID concerns. Acute onset today +fatigue Denies accompanying URI sx Denies cough Denies fatigue Denies malaise Denies skin rash or lesions. She underwent her flu and pneumonia vaccine yesterday +exposure to COVID 5 days ago States home test negative Just want to be sure The history is provided by the patient. No american sign language interpreter was used. Fatigue This is a new problem. The current episode started today. The problem occurs constantly. The problem has been unchanged. Associated symptoms include fatigue. Pertinent negatives include no abdominal pain, anorexia, arthralgias, change in bowel habit, chest pain, chills, congestion, coughing, diaphoresis, fever, headaches, joint swelling, myalgias, nausea, neck pain, numbness, rash, sore throat, swollen glands, urinary symptoms, vertigo, visual change, vomiting or weakness. Nothing aggravates the symptoms. She has tried nothing for the symptoms. The treatment provided no relief. PAST MEDICAL HISTORY Diagnosis Date Allergic rhinitis, cause unspecified Allergic rhinitis Disorder of bone and cartilage, unspecified osteopenia Mental disorder anxiety Other malignant lymphomas, unspecified site, extranodal and solid organ sites Lymphoma non-hodgkins PAST SURGICAL HISTORY Procedure Laterality Date DELIVERY ONLY DELIVERY ONLY DELIVERY ONLY DELIVERY ONLY COLONOSCOPY 11/14/2021 COLONOSCOPY FLX DX W/COLLJ SPEC WHEN PFRMD 12/03/2011 repeat 10 years EGD 11/14/2021 MAL LESION FACE,EAR,EYEL 1.1-2CM 12/03/2005 Excision right cheek/nasal lesion MAL LESION FACE,EAR,EYEL <5MM 03/11/2006 Excision right nasal bridge lesion MAL LESION TRUNK,ARM,LEG 1.1-2.0 CM 12/17/2005 Excision left posterior neck lesion SALPINGOSTOMY reversal TOTAL ABDOMINAL HYSTERECT W/WO RMVL TUBE OVARY 07/20/2007 ENRRIQUE/RSO for cyst, adhesions, adenomyosis ALLERGIES Opioids-Meperidine And Related, Chromic Sutures [Other], Erythromycin Base, and Diphenhydramine MEDICATIONS sertraline (ZOLOFT) 50 mg tablet Take 1 tablet by mouth once daily. rosuvastatin (CRESTOR) 5 mg tablet TAKE 1 TABLET BY MOUTH ONCE DAILY AT BEDTIME fluticasone (FLONASE) 50 mcg/actuation nasal spray Use 2 Sprays in each nostril once daily. Rinse mouth after use. acetaminophen (TYLENOL) 500 mg tablet Take 1,000 mg by mouth every 6 hours as needed. ibuprofen (MOTRIN) 200 mg tablet Take 400 mg by mouth every 6 hours as needed. alendronate (FOSAMAX) 70 mg tablet Take 1 tablet by mouth one time a week. Take with a full glass of water, on an empty stomach; do NOT lie down for 30minutes. Cholecalciferol, Vitamin D3, 50 mcg (2,000 unit) cap Take 1 capsule by mouth once daily. FAMILY HISTORY Problem Relation Age of Onset Osteoporosis Mother Diabetes Maternal Uncle Diabetes Maternal Uncle Diabetes Maternal Uncle Social History Tobacco Use Smoking status: Former Packs/day: 0.75 Years: 15.00 Additional pack years: 0.00 Total pack years: 11.25 Types: Cigarettes Quit date: 12/21/1995 Years since quittin.6 Smokeless tobacco: Never Vaping Use Vaping Use: Never used Substance Use Topics Alcohol use: No Drug use: No Review of Systems Constitutional: Positive for fatigue and malaise/fatigue. Negative for chills, diaphoresis and fever. HENT: Negative for congestion and sore throat. Respiratory: Negative for apnea, cough, choking and chest tightness. Cardiovascular: Negative for chest pain. Gastrointestinal: Negative for abdominal pain, anorexia, change in bowel habit, nausea and vomiting. Musculoskeletal: Negative for arthralgias, joint swelling, myalgias and neck pain. Skin: Negative for rash. Allergic/Immunologic: Negative for environmental allergies, food allergies and immunocompromised state. Neurological: Negative for vertigo, weakness, numbness and headaches. Hematological: Negative for adenopathy. Does not bruise/bleed easily. Psychiatric/Behavioral: Negative for agitation and behavioral problems. Objective BP 150/74 Pulse 97 Temp 37.2 C (99 F) Resp 18 Wt 59.4 kg (131 lb) LMP 06/04/2007 SpO2 97% BMI 26.46 kg/m Physical Exam Vitals and nursing note reviewed. Constitutional: General: She is not in acute distress. Appearance: Normal appearance. She is normal weight. She is not ill-appearing, toxic-appearing or diaphoretic. HENT: Head: Normocephalic and atraumatic. Right Ear: Ear canal and external ear normal. Left Ear: Ear canal and external ear normal. Nose: Nose normal. No congestion or rhinorrhea. Mouth/Throat: Mouth: Mucous membranes are moist. Pharynx: No oropharyngeal exudate or posterior oropharyngeal erythema. Eyes: General: Right eye: No discharge. Left eye: No discharge. Extraocular Movements: Extraocular movements intact. Conjunctiva/sclera: Conjunctivae normal. Pupils: Pupils are equal, round, and reactive to light. Cardiovascular: Rate and Rhythm: Normal rate and regular rhythm. Pulses: Normal pulses. Heart sounds: Normal heart sounds. No murmur heard. No friction rub. Pulmonary: Effort: Pulmonary effort is normal. No respiratory distress. Breath sounds: Normal breath sounds. No stridor. No wheezing, rhonchi or rales. Chest: Chest wall: No tenderness. Abdominal: General: Abdomen is flat. There is no distension. Palpations: Abdomen is soft. There is no mass. Tenderness: There is no abdominal tenderness. There is no right CVA tenderness, left CVA tenderness, guarding or rebound. Hernia: No hernia is present. Musculoskeletal: General: No swelling, tenderness, deformity or signs of injury. Normal range of motion. Cervical back: Normal range of motion and neck supple. No rigidity. Right lower leg: No edema. Left lower leg: No edema. Lymphadenopathy: Cervical: No cervical adenopathy. Skin: General: Skin is warm and dry. Capillary Refill: Capillary refill takes less than 2 seconds. Coloration: Skin is not jaundiced or pale. Findings: No bruising, erythema, lesion or rash. Neurological: General: No focal deficit present. Mental Status: She is alert and oriented to person, place, and time. Cranial Nerves: No cranial nerve deficit. Sensory: No sensory deficit. Motor: No weakness. Coordination: Coordination normal. Gait: Gait normal. Psychiatric: Mood and Affect: Mood normal. Behavior: Behavior normal. Thought Content: Thought content normal. Judgment: Judgment normal. Assessment and Plan ASSESSMENT/PLAN: 1. 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 Fatigue, unspecified type - ICD9: 780.79, ICD10: R53.83 Acute onset today No other signs Hemodynamically stable - COVID & INFLUENZA A/B & RSV NAAT, ROUTINE Nayeli Desai APRN.NUCLEAR FUEL ENRICHMENT TECHNICIAN documented in this encounter [facility] 05-04-2023 Note HNO ID: [id number] Author: Cem Tolentino, DO Service: ? Author Type: Physician Type: Progress Notes Filed: 05/04/2023 11:06 AM Note Text: Diagnosis: 1) Grade I follicular lymphoma. HPI: The patient is a 68-year-old female who has a h/o grade 1 follicular lymphoma. Dx: 12/2008. FLIPI=0. Found lumps in axillae in the fall of 2007. Were not apprecitated on exam. Patient had CT chest in 10/2008 b/c of suspected PE due to pain in legs. Significant b/l adenopathy was appreciated. Referred to Dr. Ling who performed a core needle biopsy of a right axillary node 12/11/08. Pathology c/w grade 1 follicular NHL. CD10, 20, 45, 79a as well as bcl-2 and bcl-6 positive. Cyclin D-1/bcl-1, CD5 and 23 negative. Had originally become more symptomatic due to enlarging pelvic and inguinal adenopathy. Tolerated R-CVP well with the exception of generalized fatigue. [place] following 4 cycles. CTs after 8 cycles revealed CR ([address]--all others CR). Patient had appreciated lump in left groin 09/2012. CT A/P 11/24 ?borderline left ext iliac chain adenopathy. PET 11/24 no increase in glucose metabolism. She had a screening mammogram spring 2016 which suggested an enlarged lymph node in the left axillary tail. She says when she underwent a biopsy which demonstrated grade [address] 02/06/2017 demonstrated recurrent disease with bilateral axillary lymph node involvement more pronounced on the left. There was also evidence of subpectoral and pleural base mass in the right upper hemithorax. No recurrent disease in the abdomen or pelvis. Patient had been managed under active surveillance and repeat scan in March 2017 demonstrated minimal progression. However she was uneasy about continuing expectant management and opted for treatment. Previous therapy: 1) Completed R-CVP x8 cycles. 2) Maintenance rituximab--Had reaction to Benadryl when given with rituximab--racing heartbeat and feeling of near syncope. 3) BR x6 cycles completed 10/06/2017. 4) Rituximab--held due to prolonged neutropenia. Presents for ongoing oncologic management. Interim history: Had follow-up CT chest in September of this year which demonstrated further decrease in size and density of groundglass opacity in the medial left upper lobe. Other previously described groundglass opacities had resolved. There was no lymphadenopathy appreciated. Was at urgent care last week for cough with clear sputum, chest pain and sensation of tachycardia. Was given Rx for doxycycline. Symptoms improved. No fever. No Covid testing--had symptoms for about 2 weeks previous to visit. No sick contacts. No constitutional symptoms. PMH, medications and allergies as below personally reviewed by me today. Any changes documented in appropriate section. ROS: Constitutional: See above. Neuro: Denies MOURA, vertigo, dizziness and imbalance. Denies symptoms of neuropathy. HEENT: No recent change in voice, vision or hearing. More nasal congestion and rhinorrhea since getting a cat about a year ago. Resp: Denies wheeze and hemoptysis. Denies shortness of breath at rest. Denies FELDER. CVS: Denies exertional chest pain, PND, orthopnea and LE edema. GI: No reflux, nausea or diarrhea. : No UTI symptoms currently. Endo: Denies hot flashes. Denies polyuria and polydipsia. Denies heat and cold intolerance. Musculoskeletal: Denies bone, back, joint and muscular pain. Derm: Denies rash. Denies jaundice and diffuse pruritis. Heme: Denies unusual bleeding and unexplained bruising. Psych: Normal mood. PHYSICAL EXAM: Vitals: Blood pressure 125/75, pulse 98, temperature 37.1 ?C (98.8 ?F), temperature source Temporal, height 149.9 cm (4' 11 ), weight 59 kg (130 lb), last menstrual period 06/04/2007, SpO2 99 %. Well-appearing and in no acute distress. EYES: Sclerae are anicteric bilaterally. LYMPHATIC: There is no palpable cervical, supraclavicular, axillary or inguinal adenopathy. RESPIRATORY: Inspiratory breath sounds are of normal intensity in all branch. CARDIOVASCULAR: Rhythm is regular. ABDOMEN: The abdomen is nondistended. No tenderness or rebound. No splenomegaly. Extremities: Free of edema. SKIN: No jaundice or rash. LABS: Component Latest Ref Rng AND Units 05/04/2023 WBC 3.70 - 11.00 k/uL 5.64 RBC 3.90 - 5.20 m/uL 4.26 Hemoglobin 11.5 - 15.5 g/dL 12.6 Hematocrit 36.0 - 46.0 % 38.4 MCV 80.0 - 100.0 fL 90.1 MCH 26.0 - 34.0 pg 29.6 MCHC 30.5 - 36.0 g/dL 32.8 RDW-CV 11.5 - 15.0 % 13.7 Platelet Count 150 - 400 k/uL 150 MPV 9.0 - 12.7 fL 11.3 Neut% % 52.1 Abs Neut (ANC) 1.45 - 7.50 k/uL 2.94 Lymph% % 33.9 Abs Lymph 1.00 - 4.00 k/uL 1.91 [place]% % 9.2 Abs [place] <0.87 k/uL 0.52 Eosin% % 3.2 Abs Eosin <0.46 k/uL 0.18 Baso% % 1.1 Abs Baso <0.11 k/uL 0.06 Immature Gran % % 0.5 IMMATURE GRANS (ABS) <0.10 k/uL 0.03 NRBC /100 WBC 0.0 Absolute nRBC <0.01 k/uL <0.01 DTYPE Auto Protein, Total 6.3 - 8.0 g (more content not included)... [facility] 04-28-2023 Miscellaneous Notes Patient notified.Alondra Calero LPN As discussed during the visit. She is nearly 2 weeks induration so likely less contagious than when she was in beginning. If concerned can wear mask when around the people. Pt notified of xray results and provider message. Pt is asking if she is contagious. Pt reports she watches her grandchild and helps her elderly father. Ashley Cardoza LPN Please notify that xray negative. Will send medication to pharmacy. F/u with pcp if s/s persist 5-7 days. Urgent f/u for worsening s/s. documented in this encounter [facility] 04-28-2023 Note HNO ID: [id number] Author: Cora Hernandes RT(R) Service: ? Author Type: Vibrator Equipment Tester Type: Progress Notes Filed: 04/28/2023 2:58 PM Note Text: Radiology Service Progress Note PATIENT NAME: Eneida Priest DATE OF SERVICE: April 28, 2023 TIME: 2:51 PM PATIENT IDENTITY VERIFICATION COMPLETED USING TWO (2) IDENTIFIERS: Name and Date of confirmed by patient verbally. FALL SCREENING: Has the patient had 2 falls in the last year or 1 fall with injury or currently using an Ambulatory Assistive Device (Walker, Cane, Wheelchair, Crutches, etc.)? No PATIENT GENDER DATA: Female. status: : No status: NO. PATIENT RELEVANT IMPLANT DATA REVIEWED: Yes RADIOLOGY DEPARTMENT: General X-ray: Exam(s) Completed: Chest X-Ray PERIPHERAL IV DATA: Not applicable SIGNED BY: RT Meliza(R) April 28, 2023 2:51 PM [facility] 04-28-2023 Note HNO ID: [id number] Author: Blayne Hawk APRN.NUCLEAR FUEL ENRICHMENT TECHNICIAN Service: ? Author Type: Nurse Practitioner Type: Progress Notes Filed: 04/28/2023 3:38 PM Note Text: Subjective HPI HPI Eneida Priest is a 68 year old female who presents today for CC of cough, congestion. This started 2 weeks ago, s/s improved after 1 week, now worsening greatly. Has tried otc medication for relief. Symptoms are worsened by nothing. Remote hx of smoking. .Patient presents with: Chest Congestion: nasal drainage x 2 weeks PAST MEDICAL HISTORY Diagnosis Date Allergic rhinitis, cause unspecified Allergic rhinitis Disorder of bone and cartilage, unspecified osteopenia Mental disorder anxiety Other malignant lymphomas, unspecified site, extranodal and solid organ sites Lymphoma non-hodgkins PAST SURGICAL HISTORY Procedure Laterality Date DELIVERY ONLY DELIVERY ONLY DELIVERY ONLY DELIVERY ONLY COLONOSCOPY 11/14/2021 COLONOSCOPY FLX DX W/COLLJ SPEC WHEN PFRMD 12/03/2011 repeat 10 years EGD 11/14/2021 MAL LESION FACE,EAR,EYEL 1.1-2CM 12/03/2005 Excision right cheek/nasal lesion MAL LESION FACE,EAR,EYEL <5MM 03/11/2006 Excision right nasal bridge lesion MAL LESION TRUNK,ARM,LEG 1.1-2.0 CM 12/17/2005 Excision left posterior neck lesion SALPINGOSTOMY reversal TOTAL ABDOMINAL HYSTERECT W/WO RMVL TUBE OVARY 07/20/2007 ENRRIQUE/RSO for cyst, adhesions, adenomyosis ALLERGIES Opioids-Meperidine And Related, Chromic Sutures [Other], Erythromycin Base, and Diphenhydramine MEDICATIONS alendronate (FOSAMAX) 70 mg tablet Take 1 tablet by mouth one time a week. Take with a full glass of water, on an empty stomach; do NOT lie down for 30minutes. sertraline (ZOLOFT) 50 mg tablet Take 1 tablet by mouth once daily. rosuvastatin (CRESTOR) 5 mg tablet TAKE 1 TABLET BY MOUTH ONCE DAILY AT BEDTIME Cholecalciferol, Vitamin D3, 50 mcg (2,000 unit) cap Take 1 capsule by mouth once daily. fluticasone (FLONASE) 50 mcg/actuation nasal spray Use 2 Sprays in each nostril once daily. Rinse mouth after use. acetaminophen (TYLENOL) 500 mg tablet Take 1,000 mg by mouth every 6 hours as needed. ibuprofen (MOTRIN) 200 mg tablet Take 400 mg by mouth every 6 hours as needed. FAMILY HISTORY Problem Relation Age of Onset Osteoporosis Mother Diabetes Maternal Uncle Diabetes Maternal Uncle Diabetes Maternal Uncle Social History Tobacco Use Smoking status: Former Packs/day: 0.75 Years: 15.00 Additional pack years: 0.00 Total pack years: 11.25 Types: Cigarettes Quit date: 12/21/1995 Years since quittin.3 Smokeless tobacco: Never Vaping Use Vaping Use: Never used Substance Use Topics Alcohol use: No Drug use: No ROS Objective Blood pressure 142/76, pulse 112, temperature 36.8 ?C (98.3 ?F), resp. rate 16, weight 59 kg (130 lb), last menstrual period 06/04/2007, SpO2 95 %. Physical Exam Constitutional: General: She is not in acute distress. Appearance: She is not toxic-appearing or diaphoretic. HENT: Head: Normocephalic and atraumatic. Cardiovascular: Rate and Rhythm: Regular rhythm. Tachycardia present. Heart sounds: Normal heart sounds, S1 normal and S2 normal. Pulmonary: Effort: Pulmonary effort is normal. Breath sounds: Examination of the right-middle field reveals rhonchi. Examination of the right-lower field reveals rhonchi. Rhonchi present. No decreased breath sounds, wheezing or rales. Lymphadenopathy: Cervical: No cervical adenopathy. Right cervical: No superficial cervical adenopathy. Left cervical: No superficial cervical adenopathy. Neurological: Mental Status: She is alert and oriented to person, place, and time. Gait: Gait is intact. ASSESSMENT/PLAN: 1. Lower resp. tract infection - ICD9: 519.8, ICD10: J22 - concerns with recent worsening symptoms, will cover for early pneumonia - Discussed supportive care - Limit exposure to smoke and other inhaled irritants - Discussed possible red flags and when to seek medical attention - Follow up in 3-5 days or sooner if no better or worse -If you experience chest pain/shortness of breath go to ER - XR CHEST 2V FRONTAL/ IMPRESSION: No acute radiographic abnormality. Dictated by : NEO GEE MD - DOXYCYCLINE MONOHYDRATE 100 MG TABLET Blayne Hawk APRN.[facility] 12-04-2022 Note HNO ID: [id number] Author: Jacob Cannon APRN.NUCLEAR FUEL ENRICHMENT TECHNICIAN Service: ? Author Type: Nurse Practitioner Type: Progress Notes Filed: 12/04/2022 10:01 AM Note Text: Chief Complaint Patient presents with: Follow Up HPI Eneida Priest is a 67 year old female who presents here today for Above Complaints. Eneida is an established patient of Dr. Edson MD. She is a new patient to me today. Concerns today.. Mood--- Zoloft 50 mg daily. Stable. Well controlled on this regimen. HLD -- Crestor 5 mg daily. Stable. Well controlled. Component Latest Ref Rng AND Units 10/09/2022 Cholesterol, Total <200 mg/dL 189 Triglyceride <150 mg/dL 72 HDL Cholesterol >39 mg/dL 63 Non HDL Cholesterol <130 mg/dL 126 Fasting Time hrs 10 VLDL Cholesterol <30 mg/dL 14 TC:HDL Ratio <5.10 3.00 LDL Cholesterol <100 mg/dL 112 (H) LDL:HDL Ratio <2.54 1.78 Osteoporosis -- Fosamax 70 mg daily. Stable. Tolerating well. CBC completely normal from Thursday, redrawn from September d/t slightly low platelets. Hx of lymphoma x2. In remission. HM-- Up to date. Mammogram done in August. Colonoscopy due in 2031 Past medical history, appointments, medications, allergies reviewed. Previous Medical History PAST MEDICAL HISTORY Diagnosis Date Allergic rhinitis, cause unspecified Allergic rhinitis Disorder of bone and cartilage, unspecified osteopenia Mental disorder anxiety Other malignant lymphomas, unspecified site, extranodal and solid organ sites Lymphoma non-hodgkins Previous Surgical History PAST SURGICAL HISTORY Procedure Laterality Date DELIVERY ONLY DELIVERY ONLY DELIVERY ONLY DELIVERY ONLY COLONOSCOPY 11/14/2021 COLONOSCOPY FLX DX W/COLLJ SPEC WHEN PFRMD 12/03/2011 repeat 10 years EGD 11/14/2021 MAL LESION FACE,EAR,EYEL 1.1-2CM 12/03/2005 Excision right cheek/nasal lesion MAL LESION FACE,EAR,EYEL <5MM 03/11/2006 Excision right nasal bridge lesion MAL LESION TRUNK,ARM,LEG 1.1-2.0 CM 12/17/2005 Excision left posterior neck lesion SALPINGOSTOMY reversal TOTAL ABDOMINAL HYSTERECT W/WO RMVL TUBE OVARY 07/20/2007 ENRRIQUE/RSO for cyst, adhesions, adenomyosis Family History FAMILY HISTORY Problem Relation Age of Onset Osteoporosis Mother Diabetes Maternal Uncle Diabetes Maternal Uncle Diabetes Maternal Uncle Patient Allergies ALLERGIES Allergen Reactions Opioids-Meperidine * Intolerance patient only able to tolerate small doses of pain meds Other reaction(s): Intolerance patient only able to tolerate small doses of pain meds Chromic Sutures [Ot* Swelling Erythromycin Base GI Upset Other reaction(s): GI Upset Diphenhydramine Other: See Comments, Unknown heart racing Other reaction(s): Other: See Comments heart racing Current Medications Current Outpatient Medications on File Prior to Visit Medication Sig rosuvastatin (CRESTOR) 5 mg tablet TAKE 1 TABLET BY MOUTH ONCE DAILY AT BEDTIME Cholecalciferol, Vitamin D3, 50 mcg (2,000 unit) cap Take 1 capsule by mouth once daily. alendronate (FOSAMAX) 70 mg tablet Take 1 tablet by mouth one time a week. Take with a full glass of water, on an empty stomach; do NOT lie down for 30minutes. fluticasone (FLONASE) 50 mcg/actuation nasal spray Use 2 Sprays in each nostril once daily. Rinse mouth after use. sertraline (ZOLOFT) 50 mg tablet Take 50 mg by mouth once daily. acetaminophen (TYLENOL) 500 mg tablet Take 1,000 mg by mouth every 6 hours as needed. ibuprofen (MOTRIN) 200 mg tablet Take 400 mg by mouth every 6 hours as needed. No current facility-administered medications on file prior to visit. Social History Social History Tobacco Use Smoking status: Former Packs/day: 0.75 Years: 15.00 Pack years: 11.25 Types: Cigarettes Quit date: 12/21/1995 Years since quittin.9 Smokeless tobacco: Never Vaping Use Vaping Use: Never used Substance Use Topics Alcohol use: No Drug use: No REVIEW OF SYSTEMS: as above Reviewed relevant PMHx, PSHx, Social Hx, current medications and allergies. Review of Symptoms REVIEW OF SYSTEMS See HPI. EXAM: BP 136/62 (BP Site: Right Arm, BP Position: Sitting, BP Cuff Size: Regular Adult) Pulse 72 Resp 12 Wt 59.1 kg (130 lb 3.2 oz) LMP 06/04/2007 BMI 26.30 kg/m? General Appearance: Well appearing, alert, in no acute distress, well-hydrated, well nourished.. Skin: Skin color, texture, turgor normal, no suspicious rashes or lesions. Head: Normocephalic, no masses, lesions, tenderness or abnormalities. Neck: Supple, no adenopathy; thyroid symmetric, normal size, no bruits. Back:no pain to palpation of vertebrae, good flexion and extension, good range of motion, no muscle tenderness, reflexes are 2+ and symmetric, motor and sensory appear to be normal, negative SLR test, no evidence of scoliosis Lungs: Lungs clear to auscultation. No wheezing, rhonchi, rales.. Heart: RRR without murmur, (more content not included)... [facility] 11-03-2022 Note HNO ID: [id number] Author: Alberto Sylvester APRN.NUCLEAR FUEL ENRICHMENT TECHNICIAN Service: ? Author Type: Nurse Practitioner Type: Progress Notes Filed: 11/05/2022 9:36 AM Note Text: Chief Complaint Patient presents with: Established Patient HPI: Eneida Priest is a 67 year old female who presents here today for follow up lymphoma. Per Dr. Tolentino's previous note: H/o grade 1 follicular lymphoma. Dx: 12/2008. FLIPI=0. Found lumps in axillae b/l in the fall of 2007. Were not apprecitated on exam. Patient had CT chest in 10/2008 b/c of suspected PE due to pain in legs. Significant b/l adenopathy was appreciated. Referred to Dr. Ling who performed a core needle biopsy of a right axillary node 12/11/08. Pathology c/w grade 1 follicular NHL. CD10, 20, 45, 79a as well as bcl-2 and bcl-6 positive. Cyclin D-1/bcl-1, CD5 and 23 negative. Had originally become more symptomatic due to enlarging pelvic and inguinal adenopathy. Tolerated R-CVP well with the exception of generalized fatigue. [place] following 4 cycles. CTs after 8 cycles revealed CR ([address]--all others CR). Patient had appreciated lump in left groin 09/2012. CT A/P 11/24 ?borderline left ext iliac chain adenopathy. PET 11/24 no increase in glucose metabolism. She had a screening mammogram spring 2016 which suggested an enlarged lymph node in the left axillary tail. She says when she underwent a biopsy which demonstrated grade [address] 02/06/2017 demonstrated recurrent disease with bilateral axillary lymph node involvement more pronounced on the left. There was also evidence of subpectoral and pleural base mass in the right upper hemithorax. No recurrent disease in the abdomen or pelvis. Patient had been managed under active surveillance and repeat scan in March 2017 demonstrated minimal progression. However she was uneasy about continuing expectant management and opted for treatment. Previous therapy: 1) Completed R-CVP x8 cycles. 2) Maintenance rituximab--Had reaction to Benadryl when given with rituximab--racing heartbeat and feeling of near syncope. 3) BR x6 cycles completed 10/06/2017. 4) Rituximab--held due to prolonged neutropenia. No new concerns today. Appetite: Good. Energy level: Good. Denies fevers or recent illness. Resp:denies cough or sob Cardiac:denies chest pain/palpitations GI:denies abd pain, n/v, moving bowels regularly :denies dysuria/hematuria Extrem:denies pain Neuro:denies symptoms of neuropathy Skin:denies rashes Heme:denies bleeding The ROS is otherwise negative. Past medical history, appointments, medications, allergies reviewed. No changes. EXAM: BP 134/88 Pulse 92 Temp 36.8 ?C (98.3 ?F) (Temporal) Ht 149.9 cm (4' 11 ) Wt 58.7 kg (129 lb 8 oz) LMP 06/04/2007 BMI 26.16 kg/m? APPEARANCE Well appearing, alert, in no acute distress, well-hydrated, well nourished. HEART RRR with normal S1 and S2, no murmurs LUNG clear to auscultation LYMPH NODES No cervical lymphadenopathy, No supraclavicular lymphadenopathy, and No axillary lymphadenopathy. ABDOMEN bowel sounds normoactive, soft, non-tender EXTREMITIES No edema NEURO Awake, alert and oriented x 3, Normal gait, and No involuntary motions. SKIN Skin color, texture, turgor normal, no suspicious rashes or lesions LABS: Component Latest Ref Rng AND Units 12/25/2021 05/01/2022 05/05/2022 11/03/2022 WBC 3.70 - 11.00 k/uL 6.21 4.96 4.83 4.43 RBC 3.90 - 5.20 m/uL 4.26 4.15 4.03 4.12 Hemoglobin 11.5 - 15.5 g/dL 12.2 12.2 12.1 12.6 Hematocrit 36.0 - 46.0 % 37.7 38.5 36.7 38.0 MCV 80.0 - 100.0 fL 88.5 92.8 91.1 92.2 MCH 26.0 - 34.0 pg 28.6 29.4 30.0 30.6 MCHC 30.5 - 36.0 g/dL 32.4 31.7 33.0 33.2 RDW-CV 11.5 - 15.0 % 14.3 13.7 13.7 13.0 Platelet Count 150 - 400 k/uL 161 152 152 144 (L) MPV 9.0 - 12.7 fL 11.3 12.8 (H) 12.5 10.8 Neut% % 69.1 69.4 59.3 53.7 Abs Neut (ANC) 1.45 - 7.50 k/uL 4.29 3.44 2.86 2.38 Lymph% % 19.2 16.9 24.2 28.4 Abs Lymph 1.00 - 4.00 k/uL 1.19 0.84 (L) 1.17 1.26 [place]% % 9.3 9.9 10.8 13.3 Abs [place] <0.87 k/uL 0.58 0.49 0.52 0.59 Eosin% % 1.0 2.2 4.3 3.2 Abs Eosin <0.46 k/uL 0.06 0.11 0.21 0.14 Baso% % 0.6 1.0 0.8 0.9 Abs Baso <0.11 k/uL 0.04 0.05 0.04 0.04 Immature Gran % % 0.8 0.6 0.6 0.5 IMMATURE GRANS (ABS) <0.10 k/uL 0.05 0.03 0.03 <0.03 NRBC /100 WBC 0.0 0.0 0.0 0.0 Absolute nRBC <0.01 k/uL <0.01 <0.01 <0.01 <0.01 DTYPE Auto Auto Auto Auto CMP/LD: Pending ASSESSMENT/PLAN: 1. 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 - No new concerning findings on exam. - Reviewed CBC with pt. - CMP/LD pending. - Check CBC in one month. - Follow up in [address] Tolentino with CBC/CMP/LD. - Pt. aware to call office with any questions/concerns. The patient indicates understanding of these issues and agrees with the plan. All documentation from previous visit of 05/05/22-Dr. Tolentino was copied and paste (more content not included)... [facility] 11-03-2022 History of Presen t illness Narrative Chief Complaint Patient presents with: Established Patient HPI: Eneida Priest is a 67 year old female who presents here today for follow up lymphoma. Per Dr. Tolentino's previous note: H/o grade 1 follicular lymphoma. Dx: 12/2008. FLIPI=0. Found lumps in axillae b/l in the fall of 2007. Were not apprecitated on exam. Patient had CT chest in 10/2008 b/c of suspected PE due to pain in legs. Significant b/l adenopathy was appreciated. Referred to Dr. Ling who performed a core needle biopsy of a right axillary node 12/11/08. Pathology c/w grade 1 follicular NHL. CD10, 20, 45, 79a as well as bcl-2 and bcl-6 positive. Cyclin D-1/bcl-1, CD5 and 23 negative. Had originally become more symptomatic due to enlarging pelvic and inguinal adenopathy. Tolerated R-CVP well with the exception of generalized fatigue. [place] following 4 cycles. CTs after 8 cycles revealed CR ([address]--all others CR). Patient had appreciated lump in left groin 09/2012. CT A/P 11/24 ?borderline left ext iliac chain adenopathy. PET 11/24 no increase in glucose metabolism. She had a screening mammogram spring 2016 which suggested an enlarged lymph node in the left axillary tail. She says when she underwent a biopsy which demonstrated grade [address] 02/06/2017 demonstrated recurrent disease with bilateral axillary lymph node involvement more pronounced on the left. There was also evidence of subpectoral and pleural base mass in the right upper hemithorax. No recurrent disease in the abdomen or pelvis. Patient had been managed under active surveillance and repeat scan in March 2017 demonstrated minimal progression. However she was uneasy about continuing expectant management and opted for treatment. Previous therapy: 1) Completed R-CVP x8 cycles. 2) Maintenance rituximab--Had reaction to Benadryl when given with rituximab--racing heartbeat and feeling of near syncope. 3) BR x6 cycles completed 10/06/2017. 4) Rituximab--held due to prolonged neutropenia. No new concerns today. Appetite: Good. Energy level: Good. Denies fevers or recent illness. Resp:denies cough or sob Cardiac:denies chest pain/palpitations GI:denies abd pain, n/v, moving bowels regularly :denies dysuria/hematuria Extrem:denies pain Neuro:denies symptoms of neuropathy Skin:denies rashes Heme:denies bleeding The ROS is otherwise negative. Past medical history, appointments, medications, allergies reviewed. No changes. EXAM: BP 134/88 Pulse 92 Temp 36.8 C (98.3 F) (Temporal) Ht 149.9 cm (4' 11 ) Wt 58.7 kg (129 lb 8 oz) LMP 06/04/2007 BMI 26.16 kg/m APPEARANCE Well appearing, alert, in no acute distress, well-hydrated, well nourished. HEART RRR with normal S1 and S2, no murmurs LUNG clear to auscultation LYMPH NODES No cervical lymphadenopathy, No supraclavicular lymphadenopathy, and No axillary lymphadenopathy. ABDOMEN bowel sounds normoactive, soft, non-tender EXTREMITIES No edema NEURO Awake, alert and oriented x 3, Normal gait, and No involuntary motions. SKIN Skin color, texture, turgor normal, no suspicious rashes or lesions LABS: Component Latest Ref Rng & Units 12/25/2021 05/01/2022 05/05/2022 11/03/2022 WBC 3.70 - 11.00 k/uL 6.21 4.96 4.83 4.43 RBC 3.90 - 5.20 m/uL 4.26 4.15 4.03 4.12 Hemoglobin 11.5 - 15.5 g/dL 12.2 12.2 12.1 12.6 Hematocrit 36.0 - 46.0 % 37.7 38.5 36.7 38.0 MCV 80.0 - 100.0 fL 88.5 92.8 91.1 92.2 MCH 26.0 - 34.0 pg 28.6 29.4 30.0 30.6 MCHC 30.5 - 36.0 g/dL 32.4 31.7 33.0 33.2 RDW-CV 11.5 - 15.0 % 14.3 13.7 13.7 13.0 Platelet Count 150 - 400 k/uL 161 152 152 144 (L) MPV 9.0 - 12.7 fL 11.3 12.8 (H) 12.5 10.8 Neut% % 69.1 69.4 59.3 53.7 Abs Neut (ANC) 1.45 - 7.50 k/uL 4.29 3.44 2.86 2.38 Lymph% % 19.2 16.9 24.2 28.4 Abs Lymph 1.00 - 4.00 k/uL 1.19 0.84 (L) 1.17 1.26 [place]% % 9.3 9.9 10.8 13.3 Abs [place] <0.87 k/uL 0.58 0.49 0.52 0.59 Eosin% % 1.0 2.2 4.3 3.2 Abs Eosin <0.46 k/uL 0.06 0.11 0.21 0.14 Baso% % 0.6 1.0 0.8 0.9 Abs Baso <0.11 k/uL 0.04 0.05 0.04 0.04 Immature Gran % % 0.8 0.6 0.6 0.5 IMMATURE GRANS (ABS) <0.10 k/uL 0.05 0.03 0.03 <0.03 NRBC /100 WBC 0.0 0.0 0.0 0.0 Absolute nRBC <0.01 k/uL <0.01 <0.01 <0.01 <0.01 DTYPE Auto Auto Auto Auto CMP/LD: Pending ASSESSMENT/PLAN: 1. 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 - No new concerning findings on exam. - Reviewed CBC with pt. - CMP/LD pending. - Check CBC in one month. - Follow up in [address] Tolentino with CBC/CMP/LD. - Pt. aware to call office with any questions/concerns. The patient indicates understanding of these issues and agrees with the plan. All documentation from previous visit of 05/05/22-Dr. Tolentino was copied and pasted, documentation has been reviewed and edited as necessary for today's visit. Alberto Sylvester APRN.RAJENDRA documented in this encounter [facility] 10-16-2022 Miscellaneous Notes Left voicemail message and MyChart message regarding results of chest CT. Nodules in question, continue to decrease in size. There are two nodules in left lower lung, first noted on abdominal CT that are stable and will need to be followed. Repeat CT in one year. documented in this encounter [facility] 10-09-2022 Note HNO ID: [id number] Author: RT Mo(Dusty) Service: ? Author Type: Vibrator Equipment Tester Type: Progress Notes Filed: 10/09/2022 12:11 PM Note Text: Radiology Service Progress Note PATIENT NAME: Eneida Priest DATE OF SERVICE: October 09, 2022 TIME: 12:11 PM PATIENT IDENTITY VERIFICATION COMPLETED USING TWO (2) IDENTIFIERS: Name and Date of confirmed by patient verbally. FALL SCREENING: Has the patient had 2 falls in the last year or 1 fall with injury or currently using an Ambulatory Assistive Device (Walker, Cane, Wheelchair, Crutches, etc.)? No PATIENT GENDER DATA: Female. status: : No status: NO. PATIENT RELEVANT IMPLANT DATA REVIEWED: Yes RADIOLOGY DEPARTMENT: CT; Exam(s) Completed: Chest PERIPHERAL IV DATA: Not applicable SIGNED BY: RT Jean(Dusty) October 09, 2022 12:11 PM [facility] 10-09-2022 History of Presen t illness Narrative Radiology Service Progress Note PATIENT NAME: Eneida Priest DATE OF SERVICE: October 09, 2022 TIME: 12:11 PM PATIENT IDENTITY VERIFICATION COMPLETED USING TWO (2) IDENTIFIERS: Name and Date of confirmed by patient verbally. FALL SCREENING: Has the patient had 2 falls in the last year or 1 fall with injury or currently using an Ambulatory Assistive Device (Walker, Cane, Wheelchair, Crutches, etc.)? No PATIENT GENDER DATA: Female. status: : No status: NO. PATIENT RELEVANT IMPLANT DATA REVIEWED: Yes RADIOLOGY DEPARTMENT: CT; Exam(s) Completed: Chest PERIPHERAL IV DATA: Not applicable SIGNED BY: RT Jean(R) October 09, 2022 12:11 PM documented in this encounter [facility] 06-12-2022 History of Presen t illness Narrative Images from the original note were not included. . [facility] Note Patient name: Eneida Priest PCP: Marissa Sandhu MD Referring Physician: Cem Tolentino Consultation requested by Dr. Tolentino for an opinion regarding GGO on chest imaging. My final recommendations will be communicated back to the requesting physician by way of shared Medical record or letter to requesting physician via US mail. CC: abnormal chest CT HPI: Eneida Priest 67 year old female former 12 pack year smoker, quit 1995 with PMH significant for allergic rhinitis, anxiety, osteoporosis, nodular lymphoma (axillary lymph node biopsy 2008, follicular lymphoma, s/p R-CVP, maintenance Rituxan until 2009 then recurrence in 2016 BR for 6 cycles but Rituxan held due to prolonged neutropenia) being referred for abnormal chest CT. Past medical history is significant for COVID infection July 2020. Patient was very ill at that time but not hospitalized. She had significant shortness of breath, fatigue, fevers. Unfortunately, she had not had any chest imaging since her COVID infection until recently. Last CT for lymphoma surveillance in 2017. CT of the chest from January shows patchy groundglass infiltrates, no adenopathy, mild upper lobe emphysema changes. Follow-up CT of her chest in February showed stable but persistent GGO. No new findings. She has no prior underlying respiratory issues. Currently denies any cough, shortness of breath, wheezing, fevers, night sweats, weight loss. Labs: Component Ref Range & Units 1 mo ago (05/05/22) LD 135 - 214 U/L 166 Component Ref Range & Units 1 mo ago (05/05/22) WBC 3.70 - 11.00 k/uL 4.83 RBC 3.90 - 5.20 m/uL 4.03 Hemoglobin 11.5 - 15.5 g/dL 12.1 Hematocrit 36.0 - 46.0 % 36.7 MCV 80.0 - 100.0 fL 91.1 MCH 26.0 - 34.0 pg 30.0 MCHC 30.5 - 36.0 g/dL 33.0 RDW-CV 11.5 - 15.0 % 13.7 Platelet Count 150 - 400 k/uL 152 MPV 9.0 - 12.7 fL 12.5 Neut% % 59.3 Abs Neut 1.45 - 7.50 k/uL 2.86 Lymph% % 24.2 Abs Lymph 1.00 - 4.00 k/uL 1.17 [place]% % 10.8 Abs [place] <0.87 k/uL 0.52 Eosin% % 4.3 Abs Eosin <0.46 k/uL 0.21 Baso% % 0.8 Abs Baso <0.11 k/uL 0.04 Immature Gran % % 0.6 Abs Immature Gran <0.10 k/uL 0.03 NRBC /100 WBC 0.0 Absolute nRBC <0.01 k/uL <0.01 Diff Type Auto Imaging / Diagnostic Studies: Chest CT 01/21/22: IMPRESSION: 1. Few indeterminant bilateral patchy nodular opacities. While findings may be infectious/inflammatory in etiology, clinical correlation is requested and short-term follow-up CT chest is advised to document resolution/assess evolution. 2. No suspect intrathoracic lymphadenopathy. DATE OF EXAM: Mar 05 2022 2:22PM [facility] [id number] - CT CHEST W IVCON / PROCEDURE REASON: multiple diagnoses Comparison: CT chest 01/21/2022 RESULT: Limitations: None. Lines, tubes, and devices: None. Lung parenchyma and airways: There has been a slight decrease in density of bilateral patchy and nodular groundglass opacities. For example there is a 1.1 cm groundglass density centrally in the right middle lobe (6:98), a 1.2 x 1 cm groundglass density in the medial left upper lobe (6:71) and 7 to 8 mm groundglass nodules in the left lower lobe (6:117 and 131). Stable 3 mm nodule lateral right middle lobe (6:86). No new nodules are visualized. Mild upper lobe predominant paraseptal emphysema. No consolidation. Central airways are patent. Pleural space: No pleural effusion. No pleural thickening. Lower neck, lymph nodes, and mediastinum: The imaged thyroid gland is normal. No lymphadenopathy in the supraclavicular, axillary, mediastinal, or hilar regions. Small sliding hiatal hernia. Heart, pericardium, and thoracic vessels: The thoracic aorta and main pulmonary artery are normal in caliber. The cardiac chambers are normal in size. No coronary artery atherosclerotic calcifications are noted, although the study is not optimized for coronary assessment. No pericardial effusion or thickening. bones and soft tissues: No destructive bone lesion. Chest wall is unremarkable. Upper abdomen: No acute pathology in the upper abdomen. Stable appearance of multiple hepatic cysts. Stable low-density lesion in the posterior inferior right lobe of the liver. IMPRESSION: 1. Again noted are multiple bilateral patchy groundglass opacities. These have decreased slightly in density compared to the prior study. A short-term follow-up CT chest in 3 months is recommended to assess for any change in size. 2. No new thoracic lymphadenopathy I personally reviewed the images as well as with the patient an agree with the above assessment ALLERGIES Allergen Reactions Opioids-Meperidine * Intolerance patient only able to tolerate small doses of pain meds Other reaction(s): Intolerance patient only able to tolerate small doses of pain meds Chromic Sutures [Ot* Swelling Erythromycin Base GI Upset Other reaction(s): GI Upset Diphenhydramine Other: See Comments, Unknown heart racing Other reaction(s): Other: See Comments heart racing Cholecalciferol, Vitamin D3, 50 mcg (2,000 unit) cap Take 1 capsule by mouth once daily. rosuvastatin (CRESTOR) 5 mg tablet Take 1 tablet by mouth daily at bedtime. alendronate (FOSAMAX) 70 mg tablet Take 1 tablet by mouth one time a week. Take with a full glass of water, on an empty stomach; do NOT lie down for 30minutes. fluticasone (FLONASE) 50 mcg/actuation nasal spray Use 2 Sprays in each nostril once daily. Rinse mouth after use. elderberry fruit (ELDERBERRY ORAL) Take 1 Tablespoonful by mouth once daily. sertraline (ZOLOFT) 50 mg tablet Take 1 1/2 tablets by mouth once daily. acetaminophen (TYLENOL EXTRA STRENGTH) 500 mg tablet Take 1,000 mg by mouth every 6 hours as needed. ibuprofen (MOTRIN) 200 mg tablet Take 400 mg by mouth every 6 hours as needed. 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 Pets: dog, cat FAMILY HISTORY Problem Relation Age of Onset Osteoporosis Mother Diabetes Maternal Uncle Diabetes Maternal Uncle Diabetes Maternal Uncle PAST SURGICAL HISTORY Procedure Laterality Date DELIVERY ONLY DELIVERY ONLY DELIVERY ONLY DELIVERY ONLY COLONOSCOPY 11/14/2021 COLONOSCOPY FLX DX W/COLLJ SPEC WHEN PFRMD 12/03/2011 repeat 10 years EGD 11/14/2021 MAL LESION FACE,EAR,EYEL 1.1-2CM 12/03/2005 Excision right cheek/nasal lesion MAL LESION FACE,EAR,EYEL <5MM 03/11/2006 Excision right nasal bridge lesion MAL LESION TRUNK,ARM,LEG 1.1-2.0 CM 12/17/2005 Excision left posterior neck lesion SALPINGOSTOMY reversal TOTAL ABDOMINAL HYSTERECT W/WO RMVL TUBE OVARY 07/20/2007 ENRRIQUE/RSO for cyst, adhesions, adenomyosis PMH, Social history, family history and surgical history reviewed and updated in EMR REVIEW OF SYSTEMS: CONSTITUTIONAL: No fevers, chills, nightsweats, unintended weight loss HEENT: Denies headaches. Allergic rhinitis EYES: No diplopia or blurry vision. CARDIOVASCULAR: No chest pain, dyspnea, palpitations, orthopnea, PND, edema. PULM: See HPI GI: No dysphagia/odynophagia, problematic reflux, constipation, diarrhea, : No urinary complaints, including dysuria, gross hematuria or pyuria. NEURO: No new balance problems, peripheral weakness/paresthesias or numbness of concern. MUSC-SKEL: No joint pain, swelling, or erythema. PSY: No concerns regarding depression, anxiety INTEGUMENTARY: No new skin changes or rashes PHYSICAL EXAMINATION: LMP 06/04/2007 BP 136/80, pulse 85, RR 12, SPO2 99% on room air, weight 59 kg (130 lb) General Appearance: Age-appropriate female, NAD Skin: Skin color, texture, turgor normal, no suspicious rashes or lesions. Head: Normocephalic, no masses, lesions, tenderness or abnormalities. Eyes: Sclera, conjunctiva normal Neck: No JVD, no palpable thyroid, no masses Back: Chest wall configuration normal Lungs: Not labored, normal percussion, no wheezes or crackles Heart: RRR, no murmurs gallops Extremities: No edema or clubbing Musculoskeletal: No joint deformities or effusions Neurologic: Alert and oriented, no focal findings Lymph Nodes: No cervical lymphadenopathy and No supraclavicular lymphadenopathy. Assessment/Plan: Lung nodule/GGO on chest imaging -Findings of patchy GGO could be consistent with past COVID infection. No symptoms to suggest an active infection at this time. Cannot exclude possible early adenocarcinoma. specifically of left lung. PET scan not likely to be helpful. Recommend repeat chest CT -Follow up after CT in August NHL lymphoma -No evidence of recurrence at this time -Follows with Dr. Tolentino H/O COVID infection -Pre-COVID chest CT 2017 and no recent chest CT until this year. Imaging could be consistent with previous COVID infection Trisha De La Cruz MD [facility] documented in this encounter [facility] 05-29-2022 History of Presen t illness Narrative CC: Patient presents with: Recheck: 4 week follow up Immunizations: Flu vaccination HPI Eneida Priest is a 67 year old female who presents today for follow up on medication. Was started on alendronate at last visit. Patient has been taking once a week as prescribed without issue. Is able to remain upright for 1/2 hour after taking medication and denies sore throat, difficulty swallowing, heartburn, or abdominal pain. HLD: Started on low dose statin for LDL greater than 200. Tries to follow a low fat diet, walks 4-5 days a week average of 2.5 miles but LDL continue to be elevated. Tolerating medication well. Denies any muscle aches, chest pain, shortness of breath, exercise intolerance, or any other concerns. REVIEW OF SYSTEMS General: no fevers, no chills, no night sweats, no recurrent infections, no change in appetite, no change in energy, and no significant changes in weight Respiratory: no cough, no wheezing, no shortness of breath, no hemoptysis Cardiovascular: no chest pain, no chest pressure, no palpitations, and no swelling GI: No nausea, vomiting, or diarrhea PAST MEDICAL HISTORY Diagnosis Date Allergic rhinitis, cause unspecified Allergic rhinitis Disorder of bone and cartilage, unspecified osteopenia Mental disorder anxiety Other malignant lymphomas, unspecified site, extranodal and solid organ sites Lymphoma non-hodgkins Snoring PAST SURGICAL HISTORY Procedure Laterality Date DELIVERY ONLY DELIVERY ONLY DELIVERY ONLY DELIVERY ONLY COLONOSCOPY 11/14/2021 COLONOSCOPY FLX DX W/COLLJ SPEC WHEN PFRMD 12/03/2011 repeat 10 years EGD 11/14/2021 MAL LESION FACE,EAR,EYEL 1.1-2CM 12/03/2005 Excision right cheek/nasal lesion MAL LESION FACE,EAR,EYEL <5MM 03/11/2006 Excision right nasal bridge lesion MAL LESION TRUNK,ARM,LEG 1.1-2.0 CM 12/17/2005 Excision left posterior neck lesion SALPINGOSTOMY reversal TOTAL ABDOMINAL HYSTERECT W/WO RMVL TUBE OVARY 07/20/2007 ENRRIQUE/RSO for cyst, adhesions, adenomyosis ALLERGIES Opioids-Meperidine And Related, Chromic Sutures [Other], Erythromycin Base, and Diphenhydramine MEDICATIONS rosuvastatin (CRESTOR) 5 mg tablet Take 1 tablet by mouth daily at bedtime. alendronate (FOSAMAX) 70 mg tablet Take 1 tablet by mouth one time a week. Take with a full glass of water, on an empty stomach; do NOT lie down for 30minutes. fluticasone (FLONASE) 50 mcg/actuation nasal spray Use 2 Sprays in each nostril once daily. Rinse mouth after use. elderberry fruit (ELDERBERRY ORAL) Take 1 Tablespoonful by mouth once daily. sertraline (ZOLOFT) 50 mg tablet Take 1 1/2 tablets by mouth once daily. acetaminophen (TYLENOL EXTRA STRENGTH) 500 mg tablet Take 1,000 mg by mouth every 6 hours as needed. ibuprofen (MOTRIN) 200 mg tablet Take 400 mg by mouth every 6 hours as needed. FAMILY HISTORY Problem Relation Age of Onset Osteoporosis Mother Diabetes Maternal Uncle Diabetes Maternal Uncle Diabetes Maternal Uncle Social History Tobacco Use Smoking status: Former Packs/day: 0.75 Years: 15.00 Pack years: 11.25 Types: Cigarettes Quit date: 12/21/1995 Years since quittin.4 Smokeless tobacco: Never Vaping Use Vaping Use: Never used Substance Use Topics Alcohol use: No Drug use: No PHYSICAL EXAM BP 136/70 Pulse 68 Resp 16 Wt 59 kg (130 lb) LMP 06/04/2007 BMI 26.26 kg/m General Appearance: well appearing, in no acute distress, alert Skin: Skin color, texture, turgor normal for age; Eyes: conjunctiva pink and moist, no icterus, sclera white, non-injected Lungs: Lungs clear to auscultation. No wheezing, rhonchi, rales. Heart: RRR without murmur, gallop, or rubs. No ectopy Abdomen: Abdomen soft, non-tender. Bowel sounds normal. No masses, organomegaly Health maintenance reviewed with patient: MAMMOGRAM due on 05/18/2021 INFLUENZA(1) due on 05/15/2022 DTAP,TDAP,TD(1 - Tdap) due on 05/01/2023 SHINGRIX VACCINE(1 of 2) due on 05/01/2023 COVID-19 VACCINE(5 - Booster for Pfizer series) due on 09/04/2022 PNEUMOCOCCAL: 65+(3 - PCV) due on 10/03/2022 DEPRESSION SCREENING due on 12/25/2022 DIABETES SCREEN due on 05/05/2025 LIPID SCREEN due on 05/01/2027 COLORECTAL CANCER SCREENING due on 11/15/2031 BONE DENSITY Completed ADVANCE DIRECTIVE DISCUSSION Completed HEPATITIS C SCREENING Completed DATA REVIEWED: Most recent labs ASSESSMENT/PLAN: 1. Osteoporosis, unspecified osteoporosis type, unspecified pathological fracture presence - ICD9: 733.00, ICD10: M81.0 (primary diagnosis) - continue tx with alendronate (Fosamax) - Reviewed the need for Calcium and Vitamin D supplements and weight bearing exercise as tolerated 2. Mixed hyperlipidemia - ICD9: 272.2, ICD10: E78.2 - poor control - Continue current medication. - Encouraged following a low fat, low cholesterol diet. - Discussed the benefits of regular aerobic exercise and weight loss. - HEPATIC FUNCTION PNL - LIPID PANEL BASIC 3. Need for influenza vaccination - ICD9: V04.81, ICD10: Z23 - INFLUENZA SEASONAL QUADRIVALENT HIGH DOSE AGE 65+ Prescription instructions reviewed with patient as applicable. Potential red flag symptoms discussed with the patient. Reviewed appropriate action plan to take if red flag symptoms occur. Patient agreeable to treatment plan. Naya Rubin APRN.CNP documented in this encounter [facility] 05-07-2022 Miscellaneous Notes Prescription has been sent and follow up lab work is ordered. Please get these drawn in 3 months. Thank you Naya Rubin APRN.CNP Patient agreeable to starting medication. Please send to [facility]. Please let patient know with a LDL (bad) cholesterol greater than 200, I recommend we start a low dose statin medication like rosuvastatin and recheck levels in 3 months. Would she like to start this? If so please let her know to take 1 tablet before bed and the number one adverse reaction is muscle aches and to let us know if this occurs. Thank you Naya Rubin APRN.CNP Also diet should be rich in fruits, vegetables, lean meats and healthy fats/oils. Avoid processed foods, trans fats, vegetable oils and simple sugars. Watch portion sizes. Aerobic exercise for at least 20 minutes, 3-5 days a week. Spoke with patient. Given message from provider's office. Patient verbalizes understanding. Patient states she was fasting prior to lab draw. She is asking for recommendation about how to bring her LDL level down. Natalia M Lentine RN Left message for return call. Please let patient know vit d is low and she should take 2000 units of vit d daily. Her LDL (bad choleseterol) is improved from previous but still very high at 201. I just wanted to verify this was for sure a fasting study. Thank you Naya Rubin APRN.RAJENDRA documented in this encounter [facility] 05-05-2022 History of Presen t illness Narrative Diagnosis: 1) Grade I follicular lymphoma. HPI: The patient is a 67-year-old female who has a h/o grade 1 follicular lymphoma. Dx: 12/2008. FLIPI=0. Found lumps in axillae b/l in the fall of 2007. Were not apprecitated on exam. Patient had CT chest in 10/2008 b/c of suspected PE due to pain in legs. Significant b/l adenopathy was appreciated. Referred to Dr. Ling who performed a core needle biopsy of a right axillary node 12/11/08. Pathology c/w grade 1 follicular NHL. CD10, 20, 45, 79a as well as bcl-2 and bcl-6 positive. Cyclin D-1/bcl-1, CD5 and 23 negative. Had originally become more symptomatic due to enlarging pelvic and inguinal adenopathy. Tolerated R-CVP well with the exception of generalized fatigue. [place] following 4 cycles. CTs after 8 cycles revealed CR ([address]--all others CR). Patient had appreciated lump in left groin 09/2012. CT A/P 11/24 ?borderline left ext iliac chain adenopathy. PET 11/24 no increase in glucose metabolism. She had a screening mammogram spring 2016 which suggested an enlarged lymph node in the left axillary tail. She says when she underwent a biopsy which demonstrated grade [address] 02/06/2017 demonstrated recurrent disease with bilateral axillary lymph node involvement more pronounced on the left. There was also evidence of subpectoral and pleural base mass in the right upper hemithorax. No recurrent disease in the abdomen or pelvis. Patient had been managed under active surveillance and repeat scan in March 2017 demonstrated minimal progression. However she was uneasy about continuing expectant management and opted for treatment. Previous therapy: 1) Completed R-CVP x8 cycles. 2) Maintenance rituximab--Had reaction to Benadryl when given with rituximab--racing heartbeat and feeling of near syncope. 3) BR x6 cycles completed 10/06/2017. 4) Rituximab--held due to prolonged neutropenia. Presents for ongoing oncologic management. Interim history: She has no complaints. No chronic cough, wheeze or shortness of breath. Her appetite has been normal. No constitutional symptoms otherwise. No acute illnesses or emergency room visits since last seen. PMH, medications and allergies as below personally reviewed by me today. Any changes documented in appropriate section. ROS: Constitutional: See above. Neuro: Denies MOURA, vertigo, dizziness and imbalance. Denies symptoms of neuropathy. HEENT: No recent change in voice, vision or hearing. Resp: Denies cough, wheeze and hemoptysis. Denies shortness of breath at rest. Denies FELDER. CVS: Denies exertional chest pain, PND, orthopnea and LE edema. GI: No reflux, nausea or diarrhea. : No UTI symptoms currently. Endo: Denies hot flashes. Denies polyuria and polydipsia. Denies heat and cold intolerance. Musculoskeletal: Denies bone, back, joint and muscular pain. Derm: Denies rash. Denies jaundice and diffuse pruritis. Heme: Denies unusual bleeding and unexplained bruising. Psych: Normal mood. PHYSICAL EXAM: Vitals: Blood pressure 125/72, pulse 93, temperature 36.9 C (98.5 F), temperature source Temporal, weight 59.2 kg (130 lb 8 oz), last menstrual period 06/04/2007. Well-appearing and in no acute distress. EYES: Sclerae are anicteric bilaterally. NECK: Supple. LYMPHATIC: There is no palpable cervical, supraclavicular, axillary or inguinal adenopathy. RESPIRATORY: Inspiratory breath sounds are of normal intensity in all branch. CARDIOVASCULAR: Rhythm is regular. ABDOMEN: The abdomen is nondistended. No tenderness or rebound. No splenomegaly. Extremities: Free of edema. SKIN: No jaundice or rash. LABS: Pending. ASSESSMENT AND PLAN: (C85.88) Nodular Lymphoma of Lymph Nodes of Multiple Sites (primary encounter diagnosis) Assessment: -Had prolonged neutropenia following most recent rituximab administration in October 2017. -No exam evidence of recurrent lymphoma. -No respiratory symptoms. -CBC pending. Plan: -OV with labs in 6 months. -She has scheduled follow-up with pulmonary medicine for CT chest abnormalities. Likely these were related to her severe COVID infection. Portions of this documentation were copied and pasted from previous office visit notes in order to provide a cohesive continuity of the history. The note has been reviewed and edited and updated as necessary. Cem Tolentino DO documented in this encounter [facility] 03-05-2022 History of Presen t illness Narrative Radiology Service Progress Note DATE OF SERVICE: March 05, 2022 TIME: 2:24 PM PATIENT IDENTITY VERIFICATION COMPLETED USING TWO (2) STANDARD IDENTIFIERS: Name and Date of confirmed by patient verbally. FALL SCREENING: Has the patient had 2 falls in the last year or 1 fall with injury or currently using an Ambulatory Assistive Device (Walker, Cane, Wheelchair, Crutches, etc.)? No PATIENT GENDER DATA: Female. status: : No status: NO. PATIENT RELEVANT IMPLANT DATA REVIEWED: Yes ALLERGIES: Reviewed and unchanged CONTRAST ALLERGY: NO. EXAM: CT -CONTRAST INDUCED NEPHROPATHY RISK FACTORS: Patient age > 60 years CREATININE: Creatinine Date Value Ref Range Status 03/05/2022 0.93 0.58 - 0.96 mg/dL Final 12/25/2021 0.86 0.58 - 0.96 mg/dL Final 10/29/2021 0.88 0.58 - 0.96 mg/dL Final Estimated Glomerular Filtration Rate Date Value Ref Range Status 03/05/2022 68 >=60 mL/min/1.73m Final Comment: Estimated Glomerular Filtration Rate (eGFR) is calculated using the 2020 CKD-EPI creatinine equation. This equation utilizes serum creatinine, sex, and age as parameters. The creatinine assay has traceable calibration to isotope dilution-mass spectrometry. Refer to KDIGO guidelines for clinical interpretation. In patients with unstable renal function, e.g. those with acute kidney injury, the eGFR may not accurately reflect actual GFR. eGFR- Date Value Ref Range Status 10/29/2021 >60 Final P.O.C.T. RESULTS: POC done: Yes, See Lab Tab March 05, 2022 TREATMENT: N/A PERIPHERAL IV DATA: Ambulatory: A peripheral IV was started in the Left forearm with a Angio cath: 22 gauge. RADIOLOGY DEPARTMENT: CT; Exam(s) Completed: Chest SIGNATURE: RT Jean(R) PATIENT NAME: Eneida Priest DATE: March 05, 2022 TIME: 2:24 PM documented in this encounter [facility] 01-22-2022 Miscellaneous Notes I called and spoke to Eneida and let her know the below information and she stated understanding. She questioned what kind of infection she could be having because she doesn't think she is having any symptoms. I put the patient on hold and spoke with Alberto who said it could be pneumonia and that the antibiotic should clear it up and then they will check on the repeat CT scan in about 4-6 weeks. I got back on the line with Eneida and relayed this information and she stated understanding. Patient did not want to schedule the repeat CT scan at this time and stated she would call back in to schedule this. Lilly Smith Pss Please inform pt. that I reviewed her CT with Dr. Tolentino. Possible infection noted. Advise pt. to take doxycycline as ordered. Repeat CT chest in 4-6 weeks. Order in. Thank you. Alberto Sylvester APRN.RAJENDRA documented in this encounter [facility] 01-08-2022 History of Presen t illness Narrative Radiology Service Progress Note DATE OF SERVICE: January 08, 2022 TIME: 2:27 PM PATIENT IDENTITY VERIFICATION COMPLETED USING TWO (2) STANDARD IDENTIFIERS: Name and Date of confirmed by patient verbally. FALL SCREENING: Has the patient had 2 falls in the last year or 1 fall with injury or currently using an Ambulatory Assistive Device (Walker, Cane, Wheelchair, Crutches, etc.)? No PATIENT GENDER DATA: Female. status: : No status: NO. PATIENT RELEVANT IMPLANT DATA REVIEWED: Yes ALLERGIES: Reviewed and unchanged CONTRAST ALLERGY: NO. EXAM: CT -CONTRAST INDUCED NEPHROPATHY RISK FACTORS: Patient age > 60 years CREATININE: Creatinine Date Value Ref Range Status 12/25/2021 0.86 0.58 - 0.96 mg/dL Final 10/29/2021 0.88 0.58 - 0.96 mg/dL Final 08/15/2021 0.83 0.58 - 0.96 mg/dL Final Estimated Glomerular Filtration Rate Date Value Ref Range Status 12/25/2021 75 >=60 mL/min/1.73m Final Comment: Estimated Glomerular Filtration Rate (eGFR) is calculated using the 2020 CKD-EPI creatinine equation. This equation utilizes serum creatinine, sex, and age as parameters. The creatinine assay has traceable calibration to isotope dilution-mass spectrometry. Refer to KDIGO guidelines for clinical interpretation. In patients with unstable renal function, e.g. those with acute kidney injury, the eGFR may not accurately reflect actual GFR. eGFR- Date Value Ref Range Status 10/29/2021 >60 Final P.O.C.T. RESULTS: POC done: Yes, See Lab Tab January 08, 2022 TREATMENT: N/A PERIPHERAL IV DATA: Ambulatory: A peripheral IV was started in the Left antecubital site with a Angio cath: 22 gauge. RADIOLOGY DEPARTMENT: CT; Exam(s) Completed: Abdomen/Pelvis SIGNATURE: RT Jean(R) PATIENT NAME: Eneida Priest DATE: January 08, 2022 TIME: 2:27 PM documented in this encounter [facility] 12-25-2021 History of Presen t illness Narrative Chief Complaint Patient presents with: Established Patient HPI: Eneida Priest is a 66 year old female who presents here today for complaints of R groin/abd pain s/p fall in August. See phone note yesterday. Per Dr. Tolentino's previous note: H/o grade 1 follicular lymphoma. Dx: 12/2008. FLIPI=0. Found lumps in axillae b/l in the fall of 2007. Were not apprecitated on exam. Patient had CT chest in 10/2008 b/c of suspected PE due to pain in legs. Significant b/l adenopathy was appreciated. Referred to Dr. Ling who performed a core needle biopsy of a right axillary node 12/11/08. Pathology c/w grade 1 follicular NHL. CD10, 20, 45, 79a as well as bcl-2 and bcl-6 positive. Cyclin D-1/bcl-1, CD5 and 23 negative. Had originally become more symptomatic due to enlarging pelvic and inguinal adenopathy. Tolerated R-CVP well with the exception of generalized fatigue. [place] following 4 cycles. CTs after 8 cycles revealed CR ([address]--all others CR). Patient had appreciated lump in left groin 09/2012. CT A/P 11/24 ?borderline left ext iliac chain adenopathy. PET 11/24 no increase in glucose metabolism. She had a screening mammogram spring 2016 which suggested an enlarged lymph node in the left axillary tail. She says when she underwent a biopsy which demonstrated grade [address] 02/06/2017 demonstrated recurrent disease with bilateral axillary lymph node involvement more pronounced on the left. There was also evidence of subpectoral and pleural base mass in the right upper hemithorax. No recurrent disease in the abdomen or pelvis. Patient had been managed under active surveillance and repeat scan in March 2017 demonstrated minimal progression. However she was uneasy about continuing expectant management and opted for treatment. Previous therapy: 1) Completed R-CVP x8 cycles. 2) Maintenance rituximab--Had reaction to Benadryl when given with rituximab--racing heartbeat and feeling of near syncope. 3) BR x6 cycles completed 10/06/2017. 4) Rituximab--held due to prolonged neutropenia. I think it started in August. I would feel this pain at night. Now it's almost a constant. I have a pain around my belly button. Pain to R groin more often than pain to abdomen. Appetite: Good. Wt. stable. Energy level: Once I'm up I'm fine. Denies fevers. Resp:denies cough or sob Cardiac:denies chest pain/palpitations GI:as above, denies n/v, moving bowels regularly :denies dysuria/hematuria Extrem:denies pain otherwise Neuro:denies symptoms of neuropathy Skin:denies rashes Heme:denies bleeding The ROS is otherwise negative. Past medical history, appointments, medications, allergies reviewed. No changes. EXAM: BP 139/71 Pulse 94 Temp 37.2 C (98.9 F) Wt 58.1 kg (128 lb) LMP 06/04/2007 SpO2 99% BMI 25.85 kg/m APPEARANCE Well appearing, alert, in no acute distress, well-hydrated, well nourished. HEART RRR with normal S1 and S2, no murmurs LUNG clear to auscultation LYMPH NODES No cervical lymphadenopathy, No supraclavicular lymphadenopathy, No axillary lymphadenopathy. and No inguinal lymphadenopathy. ABDOMEN bowel sounds normoactive, soft, non-tender, non-distended, without organomegaly or palpable masses EXTREMITIES No edema NEURO Awake, alert and oriented x 3, Normal gait and No involuntary motions. SKIN Skin color, texture, turgor normal, no suspicious rashes or lesions ASSESSMENT/PLAN: 1. Nodular Lymphoma of Lymph Nodes of Multiple Sites - ICD9: 202.08, ICD10: C82.98 (primary diagnosis) 2. Groin pain, right - ICD9: 789.03, ICD10: R10.31 3. Periumbilical abdominal pain - ICD9: 789.05, ICD10: R10.33 - New R groin pain/central abd pain. - CBC/CMP/LD today. - CT abd/pelvis soon. - Follow up as scheduled pending above. - Pt. aware to call office with any questions/concerns. The patient indicates understanding of these issues and agrees with the plan. All documentation from previous visit of 11/04/21-Dr. Tolentino/myself was copied and pasted, documentation has been reviewed and edited as necessary for today's visit. Alberto Sylvester APRN.RAJENDRA documented in this encounter [facility] 12-24-2021 Miscellaneous Notes SCHEDULED. Yoly Greene Please schedule with Alberto tomorrow, 12/25/2021, @ 9:30. No need to notify patient, she is aware. Janel Benavidez LPN She could see Alberto tomorrow for evaluation. Cem Tolentino DO Patient c/o right sided pelvic/groin pain 6/10, for approximately the last 4 months. Pain is intermittent but is gradually gettiing worse. Patient mentioned that she fell in August and landed on her stomach on cement. Patient thinks she felt a little pelvic/groin discomfort about a week prior to falling but it worsened after the fall. Now it is becoming more difficult to ambulate. Patient has not mentioned this to PCP and did not seek treatment after falling. Patient remains unsure if this is related to fall. Patient also c/o umbilical area pain 3/10, for the last 2 weeks. Patient describes pain as a mild aching. Patient states she tried to palpate for lumps but is unsure if she feels any. Patient states she is eating and drinking normally, voiding and having regular BM's. Denies nausea, vomiting, fever or abdominal distention. Janel Benavidez LPN Patient calling stating she is having pain in her abdomin x 2 wks and pelvic area x 4 months. Patient if she should see PCP or Dr. Tolentino. Please advise and call patient. documented in this encounter [facility] 12-18-2021 History of Presen t illness Narrative Subjective HPI Eneida Priest is a 66 year old female who presents with 2 weeks of sinus congestion, cough, headache, hoarse voice. She has been taking Mucinex OTC but symptoms have not improved. She has not had a fever. No known sick contacts. Review of Systems Constitutional: Negative for chills and fever. HENT: Positive for congestion, sinus pain and sore throat. Negative for ear pain. Respiratory: Positive for cough. Negative for shortness of breath. Cardiovascular: Negative. Musculoskeletal: Negative for myalgias. Neurological: Positive for headaches. BP 144/72 Pulse 110 Temp 37.1 C (98.7 F) Resp 18 Wt 58.1 kg (128 lb) LMP 06/04/2007 SpO2 99% BMI 25.85 kg/m PAST MEDICAL HISTORY Diagnosis Date Allergic rhinitis, cause unspecified Allergic rhinitis Disorder of bone and cartilage, unspecified osteopenia Mental disorder anxiety Other malignant lymphomas, unspecified site, extranodal and solid organ sites Lymphoma non-hodgkins Snoring PAST SURGICAL HISTORY Procedure Laterality Date DELIVERY ONLY DELIVERY ONLY DELIVERY ONLY DELIVERY ONLY COLONOSCOPY FLX DX W/COLLJ SPEC WHEN PFRMD 12/03/11 repeat 10 years MAL LESION FACE,EAR,EYEL 1.1-2CM 12/03/05 Excision right cheek/nasal lesion MAL LESION FACE,EAR,EYEL <5MM 03/11/06 Excision right nasal bridge lesion MAL LESION TRUNK,ARM,LEG 1.1-2.0 CM 12/17/05 Excision left posterior neck lesion SALPINGOSTOMY reversal TOTAL ABDOMINAL HYSTERECT W/WO RMVL TUBE OVARY 07/20/07 ENRRIQUE/RSO for cyst, adhesions, adenomyosis ALLERGIES Opioids-Meperidine And Related, Chromic Sutures [Other], Erythromycin Base, and Diphenhydramine MEDICATIONS albuterol HFA (PROVENTIL HFA, VENTOLIN HFA) 90 mcg/actuation inhaler Inhale 2 Puffs as instructed every 4 hours as needed for wheezing/shortness of breath. elderberry fruit (ELDERBERRY ORAL) Take 1 Tablespoonful by mouth once daily. sertraline (ZOLOFT) 50 mg tablet Take 50 mg by mouth once daily. loratadine (CLARITIN) 10 mg tablet Take 10 mg by mouth once daily. acetaminophen (TYLENOL EXTRA STRENGTH) 500 mg tablet Take 1,000 mg by mouth every 6 hours as needed. ibuprofen (MOTRIN) 200 mg tablet Take 400 mg by mouth every 6 hours as needed. amoxicillin-clavulanic acid (AUGMENTIN) 875-125 mg per tablet Take 1 tablet by mouth twice daily for 10 days. fluticasone (FLONASE) 50 mcg/actuation nasal spray Use 2 Sprays in each nostril once daily. Rinse mouth after use. psyllium husk (METAMUCIL ORAL) Take 2 teaspoonsful by mouth once daily as needed. peg 3350-Electrolytes (GOLYTELY) 236-22.74-6.74 -5.86 gram suspension Refer to printed prep instructions from your provider. pantoprazole DR (PROTONIX) 40 mg tablet Take 1 tablet by mouth daily before breakfast. Take on empty stomach, 1/2 hr before meal. FAMILY HISTORY Problem Relation Age of Onset Osteoporosis Mother Diabetes Maternal Uncle Diabetes Maternal Uncle Diabetes Maternal Uncle Social History Tobacco Use Smoking status: Former Smoker Packs/day: 0.75 Years: 15.00 Pack years: 11.25 Types: Cigarettes Quit date: 12/21/1995 Years since quittin.0 Smokeless tobacco: Never Used Vaping Use Vaping Use: Never used Substance Use Topics Alcohol use: No Drug use: No Objective Physical Exam Vitals and nursing note reviewed. Constitutional: Appearance: Normal appearance. HENT: Right Ear: Tympanic membrane, ear canal and external ear normal. Left Ear: Tympanic membrane, ear canal and external ear normal. Nose: Mucosal edema, congestion and rhinorrhea present. Mouth/Throat: Pharynx: Uvula midline. No oropharyngeal exudate or posterior oropharyngeal erythema. Cardiovascular: Rate and Rhythm: Normal rate and regular rhythm. Heart sounds: Normal heart sounds. Pulmonary: Effort: Pulmonary effort is normal. No respiratory distress. Breath sounds: Normal breath sounds. No wheezing or rales. Musculoskeletal: Cervical back: Neck supple. Lymphadenopathy: Cervical: No cervical adenopathy. Skin: General: Skin is warm and dry. Findings: No erythema or rash. Neurological: Mental Status: She is alert. ASSESSMENT/PLAN: 1. Acute sinusitis, recurrence not specified, unspecified location - ICD9: 461.9, ICD10: J01.90 - Will begin treatment with Augmentin 875 mg PO BID for 10 days - Supportive care with plenty of fluids, rest, and analgesia prn. - AMOXICILLIN 875 MG-POTASSIUM CLAVULANATE 125 MG TABLET - FLUTICASONE PROPIONATE 50 MCG/ACTUATION NASAL SPRAY,SUSPENSION - Follow-up with your PCP in 3-5 days if symptoms have not improved or sooner if symptoms worsen - Discussed red flags and need for immediate medical evaluation if any occur. - Discussed supportive care treatment with fluids, rest and analgesia. - Discussed expected course of illness Mary Kate Preston APRN.CNP documented in this encounter [facility] 12-18-2021 Instructions Mary Kate Preston APRN.CNP - 12/18/2021 11:07 AM EDT ASSESSMENT/PLAN: 1. Acute sinusitis, recurrence not specified, unspecified location - ICD9: 461.9, ICD10: J01.90 - Will begin treatment with Augmentin 875 mg PO BID for 10 days - Supportive care with plenty of fluids, rest, and analgesia prn. - AMOXICILLIN 875 MG-POTASSIUM CLAVULANATE 125 MG TABLET - FLUTICASONE PROPIONATE 50 MCG/ACTUATION NASAL SPRAY,SUSPENSION - Follow-up with your PCP in 3-5 days if symptoms have not improved or sooner if symptoms worsen - Discussed red flags and need for immediate medical evaluation if any occur. - Discussed supportive care treatment with fluids, rest and analgesia. - Discussed expected course of illness Mary Kate Preston APRN.CNP [facility] PATIENT INFO ACUTE SINUSITIS OVERVIEW Rhinosinusitis, or more commonly sinusitis, is the medical term for inflammation (swelling) of the lining of the sinuses and nose. The sinuses are the hollow areas within the facial bones that are connected to the nasal openings. The sinuses are lined with mucous membranes, similar to the inside of the nose. There are two main types of sinusitis: acute and chronic. Acute sinusitis is inflammation that lasts for less than four weeks while chronic sinusitis lasts for more than 12 weeks. Acute sinusitis is common, affecting approximately one million people per year in the [place]. ACUTE SINUSITIS CAUSES The most common cause of acute sinusitis is a viral infection associated with the common cold. Bacterial sinusitis occurs much less commonly, in only 0.5 to 2 percent of cases, usually as a complication of viral sinusitis. Because antibiotics are effective only against bacterial, and not viral, infections, most people do not need antibiotics for acute sinusitis. ACUTE SINUSITIS SYMPTOMS Symptoms of acute sinusitis include: Nasal congestion or blockage Thick, yellow to green discharge from the nose Pain in the teeth Pain or pressure in the face that is worse when bending forwards Other acute sinusitis symptoms can include fever (temperature greater than 100.4 F or 38 C), fatigue, cough, difficulty or inability to smell, ear pressure or fullness, headache, and bad breath. In most cases, these symptoms develop over the course of one day and begin to improve within seven to 10 days. DO I NEED TO BE EXAMINED? It is difficult to know if you have a viral or bacterial sinus infection initially. However, most people with a viral infection improve without treatment within seven to 10 days after symptoms begin. Bacterial sinusitis also sometimes improves without treatment, although it can also worsen and require treatment. If one or more of the following bothersome symptoms last more than seven days, an examination by a healthcare provider is recommended: Thick, yellow to green discharge from the nose Face or tooth pain, especially if it is only on one side Tenderness over the maxillary sinuses (located on the left and right side of the nose, inside the cheekbones) Symptoms that initially improve and then worsen When to seek immediate help If you have one or more of the following symptoms, you should seek medical attention immediately (even if symptoms have been present for less than seven days): High fever (>102.5 F or 39.2 C) Sudden, severe pain in the face or head Double vision or difficulty seeing Confusion or difficulty thinking clearly Swelling or redness around one or both eyes Stiff neck, shortness of breath ACUTE SINUSITIS TREATMENT Initial treatment of a sinus infection aims to relieve symptoms since almost everyone will improve within the first seven to 10 days. Experts recommend avoiding antibiotics during this time unless there is clear evidence of a severe bacterial infection. Initial treatment Pain relief Non-prescription pain medications, such as acetaminophen (eg, Tylenol ) or ibuprofen (eg, Motrin , Advil ) are recommended for pain. Nasal irrigation and saline sprays Rinsing the nose with a salt-water (saline) solution is called nasal irrigation or nasal lavage. Saline is also available in a standard nasal spray, although this is not as effective as using larger amounts of water in an irrigation. Nasal irrigation is particularly useful for treating drainage down the back of the throat, sneezing, nasal dryness, and congestion. The treatment helps by rinsing out allergens and irritants from the nose. Saline rinses also clean the nasal lining and can be used before applying sprays containing medications, to get a better effect from the medication. Nasal lavage with warmed saline can be performed as needed, once per day, or twice daily for increased symptoms. Nasal lavage carries few risks when performed correctly. Saline nasal sprays and irrigation kits can be purchased [id number]. Saline mixes can also be purchased or patients can make their own solution. A variety of devices, including bulb syringes, Neti pots, and bottle sprayers, may be used to perform nasal lavage; instructions for nasal lavage are provided in the table. At least 200 mL (about 3/4 cup) of fluid is recommended for each nostril. Nasal decongestants Nasal decongestant sprays, including oxymetazoline (Afrin ) and phenylephrine (Twan-synephrine ) can be used to temporarily treat congestion. However, these sprays should not be used for more than two to three days due to the risk of rebound congestion (when the nose is congested constantly unless the medication is used repeatedly). Other treatments Other treatments for congestion, such as oral antihistamines (such as diphenhydramine/Benadryl ) or zinc supplements are not proven to improve symptoms of sinusitis and can have unwanted side effects. Medications to thin secretions (such as guaifenesin) may help to clear mucus. Secondline treatment If symptoms have not improved in seven to ten days, you should arrange for medical evaluation. You may need further treatment. Nasal glucocorticoids Nasal glucocorticoids (steroids delivered by a nasal spray) can help to reduce swelling inside the nose, usually within two to three days. These drugs have few side effects and dramatically relieve symptoms in most people. There are a number of nasal glucocorticoids available by prescription. These drugs are all effective, but differ in how frequently they must be used and how much they cost. You may need to use a nasal decongestant for a few days before starting a nasal glucocorticoid to reduce nasal swelling; this will allow the nasal glucocorticoid to reach more areas of the nasal passages Do I need an antibiotic? If bothersome symptoms of sinusitis persist for 10 or more days, it is possible that you have bacterial sinusitis. The need for antibiotics depends upon the severity of your symptoms. Mild symptoms There are two possible treatment options if you have mild sinusitis symptoms: treat with antibiotics or continue to watch and wait for one week. Watching and waiting is a reasonable option because up to 75 percent of people with bacterial sinusitis improve within one month without antibiotics. During the watch and wait period, treatments to improve symptoms are recommended. If symptoms worsen or do not improve after watching and waiting, treatment with an antibiotic is usually recommended. Treatments to relieve symptoms are recommended while using antibiotics. Moderate or severe symptoms Most healthcare providers will prescribe an antibiotic for moderate to severe symptoms (temperature >38.3 C or 101 F and/or severe pain that interferes with usual activities). Treatments to relieve symptoms are also recommended during antibiotic treatment. One of the least expensive and most effective antibiotics for sinusitis is amoxicillin. An alternate antibiotic will be prescribed if you are allergic to penicillin. Regardless of which antibiotic is prescribed, it is important to follow the dosing instructions carefully and to finish the entire course of treatment. Taking the medication less often than prescribed or stopping the medication early can lead to complications, such as a recurrent infection. What if I do not improve with treatment? If you do not improve or worsen after a course of antibiotics, you should be re-examined. In some cases, symptoms of sinusitis improve but then recur. This is usually because the infection was not completely eliminated by the antibiotic. An alternate antibiotic, extended antibiotic treatment, and/or further testing may be recommended, depending upon your individual situation. documented in this encounter [facility] documented as of this encounter (statuses as of 12/18/2021) [facility]11-28-2017 History of Past illness Narrative* Problem Noted Date Resolved Date Chemotherapy-induced neutropenia 08/11/2017 08/14/2021 Enlargement of lymph nodes 12/12/200801/15 Disorder of bone and cartilage, unspecified 12/200705/25/2014 Abdominal pain, right lower quadrant 07/12/2007 01/15/2017 Other and unspecified ovarian cyst 07/12/2007 01/15/2017 Palpitations 02/11/2006 01/15/2017 Allergic rhinitis, cause unspecified 02/07/2006 01/15/2017 Hypertrophy of uterus 10/17/2005 10/21/2012 documented as of this encounter (statuses as of 12/24/2021) [facility]2017 History of Past illness Narrative* Problem Noted Date Resolved Date Chemotherapy-induced neutropenia 08/11/2017 08/14/2021 Enlargement of lymph nodes 12/12/200801/15 Disorder of bone and cartilage, unspecified 12/200705/25/2014 Abdominal pain, right lower quadrant 07/12/2007 01/15/2017 Other and unspecified ovarian cyst 07/12/2007 01/15/2017 Palpitations 02/11/2006 01/15/2017 Allergic rhinitis, cause unspecified 02/07/2006 01/15/2017 Hypertrophy of uterus 10/17/2005 10/21/2012 documented as of this encounter (statuses as of 12/25/2021) [facility] History of Past illness Narrative* Problem Noted Date Resolved Date Chemotherapy-induced neutropenia 08/11/2017 08/14/2021 Enlargement of lymph nodes 12/12/200801/15 Disorder of bone and cartilage, unspecified 12/200705/25/2014 Abdominal pain, right lower quadrant 07/12/2007 01/15/2017 Other and unspecified ovarian cyst 07/12/2007 01/15/2017 Palpitations 02/11/2006 01/15/2017 Allergic rhinitis, cause unspecified 02/07/2006 01/15/2017 Hypertrophy of uterus 10/17/2005 10/21/2012 documented as of this encounter (statuses as of 01/09/2022) [address]28-2017 History of Past illness Narrative* Problem Noted Date Resolved Date Chemotherapy-induced neutropenia 08/11/2017 08/14/2021 Enlargement of lymph nodes 12/12/200801/15 Disorder of bone and cartilage, unspecified 0 12/200705/25/2014 Abdominal pain, right lower quadrant 07/12/2007 01/15/2017 Other and unspecified ovarian cyst 07/12/2007 01/15/2017 Palpitations 02/11/2006 01/15/2017 Allergic rhinitis, cause unspecified 02/07/2006 01/15/2017 Hypertrophy of uterus 10/17/2005 10/21/2012 documented as of this encounter (statuses as of 01/22/2022) [facility] History of Past illness Narrative* Problem Noted Date Resolved Date Chemotherapy-induced neutropenia 08/11/2017 08/14/2021 Enlargement of lymph nodes 12/12/200801/15 Disorder of bone and cartilage, unspecified 12/200705/25/2014 Abdominal pain, right lower quadrant 07/12/2007 01/15/2017 Other and unspecified ovarian cyst 07/12/2007 01/15/2017 Palpitations 02/11/2006 01/15/2017 Allergic rhinitis, cause unspecified 02/07/2006 01/15/2017 Hypertrophy of uterus 10/17/2005 10/21/2012 documented as of this encounter (statuses as of 03/06/2022) [facility] History of Past illness Narrative* Problem Noted Date Resolved Date Chemotherapy-induced neutropenia 08/11/2017 08/14/2021 Enlargement of lymph nodes 12/12/200801/15 Disorder of bone and cartilage, unspecified 12/200705/25/2014 Abdominal pain, right lower quadrant 07/12/2007 01/15/2017 Other and unspecified ovarian cyst 07/12/2007 01/15/2017 Palpitations 02/11/2006 01/15/2017 Allergic rhinitis, cause unspecified 02/07/2006 01/15/2017 Hypertrophy of uterus 10/17/2005 10/21/2012 documented as of this encounter (statuses as of 05/01/2022) [facility] History of Past illness Narrative* Problem Noted Date Resolved Date Chemotherapy-induced neutropenia 08/11/2017 08/14/2021 Enlargement of lymph nodes 12/12/200801/15 Disorder of bone and cartilage, unspecified 12/200705/25/2014 Abdominal pain, right lower quadrant 07/12/2007 01/15/2017 Other and unspecified ovarian cyst 07/12/2007 01/15/2017 Palpitations 02/11/2006 01/15/2017 Allergic rhinitis, cause unspecified 02/07/2006 01/15/2017 Hypertrophy of uterus 10/17/2005 10/21/2012 documented as of this encounter (statuses as of 05/05/2022) [place] [address]-28-2017 History of Past illness Narrative* Problem Noted Date Resolved Date Chemotherapy-induced neutropenia 08/11/2017 08/14/2021 Enlargement of lymph nodes 12/12/200801/15 Disorder of bone and cartilage, unspecified 0 12/200705/25/2014 Abdominal pain, right lower quadrant 07/12/2007 01/15/2017 Other and unspecified ovarian cyst 07/12/2007 01/15/2017 Palpitations 02/11/2006 01/15/2017 Allergic rhinitis, cause unspecified 02/07/2006 01/15/2017 Hypertrophy of uterus 10/17/2005 10/21/2012 documented as of this encounter (statuses as of 05/07/2022) [facility] History of Past illness Narrative* Problem Noted Date Resolved Date Chemotherapy-induced neutropenia 08/11/2017 08/14/2021 Enlargement of lymph nodes 12/12/200801/15 Disorder of bone and cartilage, unspecified 12/200705/25/2014 Abdominal pain, right lower quadrant 07/12/2007 01/15/2017 Other and unspecified ovarian cyst 07/12/2007 01/15/2017 Palpitations 02/11/2006 01/15/2017 Allergic rhinitis, cause unspecified 02/07/2006 01/15/2017 Hypertrophy of uterus 10/17/2005 10/21/2012 documented as of this encounter (statuses as of 05/29/2022) [facility] History of Past illness Narrative* Problem Noted Date Resolved Date Chemotherapy-induced neutropenia 08/11/2017 08/14/2021 Enlargement of lymph nodes 12/12/200801/15 Disorder of bone and cartilage, unspecified 0 12/200705/25/2014 Abdominal pain, right lower quadrant 07/12/2007 01/15/2017 Other and unspecified ovarian cyst 07/12/2007 01/15/2017 Palpitations 02/11/2006 01/15/2017 Allergic rhinitis, cause unspecified 02/07/2006 01/15/2017 Hypertrophy of uterus 10/17/2005 10/21/2012 documented as of this encounter (statuses as of 06/02/2022) [facility] History of Past illness Narrative* Problem Noted Date Resolved Date Chemotherapy-induced neutropenia 08/11/2017 08/14/2021 Enlargement of lymph nodes 12/12/200801/15 Disorder of bone and cartilage, unspecified 12/200705/25/2014 Abdominal pain, right lower quadrant 07/12/2007 01/15/2017 Other and unspecified ovarian cyst 07/12/2007 01/15/2017 Palpitations 02/11/2006 01/15/2017 Allergic rhinitis, cause unspecified 02/07/2006 01/15/2017 Hypertrophy of uterus 10/17/2005 10/21/2012 documented as of this encounter (statuses as of 06/12/2022) [facility] History of Past illness Narrative* Problem Noted Date Resolved Date Chemotherapy-induced neutropenia 08/11/2017 08/14/2021 Enlargement of lymph nodes 12/12/200801/15 Disorder of bone and cartilage, unspecified 12/200705/25/2014 Abdominal pain, right lower quadrant 07/12/2007 01/15/2017 Other and unspecified ovarian cyst 07/12/2007 01/15/2017 Palpitations 02/11/2006 01/15/2017 Allergic rhinitis, cause unspecified 02/07/2006 01/15/2017 Hypertrophy of uterus 10/17/2005 10/21/2012 documented as of this encounter (statuses as of 10/16/2022) [facility] History of Past illness Narrative* Problem Noted Date Resolved Date Chemotherapy-induced neutropenia 08/11/2017 08/14/2021 Enlargement of lymph nodes 12/12/200801/15 Disorder of bone and cartilage, unspecified 12/200705/25/2014 Abdominal pain, right lower quadrant 07/12/2007 01/15/2017 Other and unspecified ovarian cyst 07/12/2007 01/15/2017 Palpitations 02/11/2006 01/15/2017 Allergic rhinitis, cause unspecified 02/07/2006 01/15/2017 Hypertrophy of uterus 10/17/2005 10/21/2012 documented as of this encounter (statuses as of 11/05/2022) [facility] History of Past illness Narrative* Problem Noted Date Diagnosed Date Resolved Date Chemotherapy-induced neutropenia 08/11/2017 08/14/2021 Enlargement of lymph nodes 12/12/2008 0 01/15/2017 Disorder of bone and cartilage, unspecified 07/18/2008 05/25/2014 Abdominal pain, right lower quadrant 07/12/2007 01/15/2017 Other and unspecified ovarian cyst 07/12/2007 01/15/2017 Palpitations 02/11/2006 01/15/2017 Allergic rhinitis, cause unspecified 02/07/2006 01/15/2017 Hypertrophy of uterus 10/17/20052012 documented as of this encounter (statuses as of 04/29/2023) [facility] History of Past illness Narrative* Problem Noted Date Diagnosed Date Resolved Date Chemotherapy-induced neutropenia 08/11/2017 08/14/2021 Enlargement of lymph nodes 12/12/2008 0 01/15/2017 Disorder of bone and cartilage, unspecified 07/18/2008 05/25/2014 Abdominal pain, right lower quadrant 07/12/2007 01/15/2017 Other and unspecified ovarian cyst 07/12/2007 01/15/2017 Palpitations 02/11/2006 01/15/2017 Allergic rhinitis, cause unspecified 02/07/2006 01/15/2017 Hypertrophy of uterus 10/17/20052012 documented as of this encounter (statuses as of 05/02/2023) [facility] History of Past illness Narrative* Problem Noted Date Diagnosed Date Resolved Date Chemotherapy-induced neutropenia 08/11/2017 08/14/2021 Enlargement of lymph nodes 12/12/2008 0 01/15/2017 Disorder of bone and cartilage, unspecified 07/18/2008 05/25/2014 Abdominal pain, right lower quadrant 07/12/2007 01/15/2017 Other and unspecified ovarian cyst 07/12/2007 01/15/2017 Palpitations 02/11/2006 01/15/2017 Allergic rhinitis, cause unspecified 02/07/2006 01/15/2017 Hypertrophy of uterus 10/17/20052012 documented as of this encounter (statuses as of 07/19/2023) [facility] History of Past illness Narrative* Problem Noted Date Diagnosed Date Resolved Date Chemotherapy-induced neutropenia 08/11/2017 08/14/2021 Enlargement of lymph nodes 12/12/2008 0 01/15/2017 Disorder of bone and cartilage, unspecified 07/18/2008 05/25/2014 Abdominal pain, right lower quadrant 07/12/2007 01/15/2017 Other and unspecified ovarian cyst 07/12/2007 01/15/2017 Palpitations 02/11/2006 01/15/2017 Allergic rhinitis, cause unspecified 02/07/2006 01/15/2017 Hypertrophy of uterus 10/17/20052012 documented as of this encounter (statuses as of 07/19/2023) [facility] History of Past illness Narrative* Problem Noted Date Diagnosed Date Resolved Date Chemotherapy-induced neutropenia (HCC) 08/11/2017 08/14/2021 Enlargement of lymph nodes 12/12/2008 0 01/15/2017 Disorder of bone and cartilage, unspecified 07/18/2008 05/25/2014 Abdominal pain, right lower quadrant 07/12/2007 01/15/2017 Other and unspecified ovarian cyst 07/12/2007 01/15/2017 Palpitations 02/11/2006 01/15/2017 Allergic rhinitis, cause unspecified 02/07/2006 01/15/2017 Hypertrophy of uterus 10/17/20052012 documented as of this encounter (statuses as of 07/24/2023) [facility] Diagnosis Acute sinusitis, recurrence not specified, unspecified location- Primary [facility] Diagnosis 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 Groin pain, right Periumbilical abdominal pain Abdominal pain, periumbilic [facility] Diagnosis 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 Groin pain, right Periumbilical abdominal pain Abdominal pain, periumbilic [facility] Diagnosis 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 Abnormal CT of the chest Nonspecific (abnormal) findings on radiological and other examination of other intrathoracic organs [facility] 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 Abnormal CT of the chest Nonspecific (abnormal) findings on radiological and other examination of other intrathoracic organs [facility] Diagnosis 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 [facility] Diagnosis 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 [facility] Diagnosis Mixed hyperlipidemia- Primary Medication management Encounter for long-term (current) use of other medications [facility] Diagnosis Osteoporosis, unspecified osteoporosis type, unspecified pathological fracture presence- Primary Mixed hyperlipidemia Need for influenza vaccination Need for prophylactic vaccination and inoculation against influenza [facility] Diagnosis Encounter for screening mammogram for breast cancer [facility] Diagnosis Lung nodules- Primary Other nonspecific abnormal finding of lung field 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 History of COVID-19 [facility] Diagnosis 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 [facility] Diagnosis 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 [facility] Diagnosis 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 Lung nodules Other nonspecific abnormal finding of lung field [facility] Diagnosis Exposure to COVID-19 virus- Primary Fatigue, unspecified type [facility] Diagnostic Procedure Only (Routine) - Pending Review Specialty Diagnoses / Procedures Referred By Ladarius t Referred To Contact [facility] Diagnoses Encounter for screening mammogram for breast cancer Procedures BRADY SCREENING SCREENING MAMMOGRAPHY BI 2-VIEW BREAST INC CAD Marissa Sandhu MD [address] [place] [address] [facility] [address] [place] [address] Referral ID Status Reason Start Date Expiration Date Visits Requested Visits Authorized [id number] Pending Review Auto-Generat ed Referral 05/28/2022 06/27/2023 1 1 [facility] History of Present Illness * Yolanda Ruiz CNP - 07/30/2020 6:10 PM EST Patient Name: [facility] Location: [facility] [place] [address] Date Of : Date Of Visit: 1955 07/30/2020 MRN# Provider: [id number] Yolanda Ruiz CNP Chief Complaint Patient presents with Covid-19 Screening cough, MOURA, runny nose Assessment & Plan 1. COVID-19 Covid-19/Influenza Order Algorithm No follow-ups on file. Medical Decision Making Patient has positive URI symptoms. Patient requests COVID testing. Rapid [employer] swab is done. Patient is discharged and provider will call with results. Additional Clinical Comments Discussed over the counter medications for symptomatic management and side effects of medications. Recommended taking all medications with food and to stop medications if they develop any signs of anallergic reaction. Influenza Immunization Patient UTD. Flu shot documented in chart under Health Maintenance. [facility] COVID-19 Mask Status: Does the patient have classic COVID-19 symptoms? Yes, the patient has COVID-19 symptoms, the patient WAS wearing a mask during the visit and I (the provider) WAS wearing full PPE (N95 mask, gown, gloves, and face shield) during the visit. Subjective 65 y.o. female presents with Covid-19 Screening (cough, MOURA, runny nose) URI This is a new problem. The current episode started in the past 7 days. The problem has been gradually worsening. Associated symptoms include congestion, coughing, headaches, rhinorrhea, a sore throatand swollen glands. Pertinent negatives include no abdominal pain, chest pain, diarrhea, dysuria, joint pain, joint swelling, nausea, neck pain, plugged ear sensation or rash. She has tried nothing for the symptoms. Review Of Systems Review of Systems Constitutional: Positive for activity change and fatigue. Negative for appetite change and chills. HENT: Positive for congestion, postnasal drip, rhinorrhea, sinus pressure and sore throat. Negativefor ear discharge. Respiratory: Positive for cough. Negative for apnea, chest tightness and shortness of breath. Cardiovascular: Negative for chest pain. Gastrointestinal: Negative for abdominal distention, abdominal pain, constipation, diarrhea and nausea. Endocrine: Negative for cold intolerance and heat intolerance. Genitourinary: Negative for difficulty urinating, dysuria, flank pain, frequency and hematuria. Musculoskeletal: Negative for gait problem, joint pain, joint swelling and neck pain. Skin: Negative for rash. Neurological: Positive for headaches. Negative for dizziness, syncope and numbness. Psychiatric/Behavioral: Negative for agitation, behavioral problems and confusion. Medical History Past Medical History: Diagnosis Date Anxiety Cancer (HCC) Past Surgical History: Procedure Laterality Date SECTION, LOW TRANSVERSE SKIN BIOPSY Patient Active Problem List Diagnosis COVID-19 Social History Social History Tobacco Use Smoking status: Never Smoker Smokeless tobacco: Never Used Substance Use Topics Alcohol use: Not on file Drug use: Not on file Family History Family History Problem Relation Age of Onset No Known Problems Mother No Known Problems Father Objective Physical Exam Ht 4' 11 Wt 54.4 kg (120 lb) BMI 24.24 kg/m Vision/Hearing Exam:No exam data present Physical Exam Constitutional: Appearance: She is well-developed. HENT: Head: Normocephalic. Eyes: Conjunctiva/sclera: Conjunctivae normal. Neck: Musculoskeletal: Normal range of motion. Cardiovascular: Rate and Rhythm: Normal rate and regular rhythm. Heart sounds: Normal heart sounds. Pulmonary: Effort: Pulmonary effort is normal. Breath sounds: No wheezing or rales. Abdominal: General: Bowel sounds are normal. There is no distension. Palpations: Abdomen is soft. Tenderness: There is no abdominal tenderness. Musculoskeletal: Normal range of motion. General: No tenderness. Skin: General: Skin is warm and dry. Neurological: Mental Status: She is alert and oriented to person, place, and time. Psychiatric: Behavior: Behavior normal. Procedure Notes Procedures Results No results found for this or any previous visit (from the past 168 hour(s)). No orders to display Orders Placed This Visit Orders Placed This Encounter Procedures Covid-19/Influenza Order Algorithm COVID-19, Molecular Medication List At End Of Visit Current Outpatient Medications Medication Sig Dispense Refill LORazepam (ATIVAN) 0.5 MG tablet Take 0.5 mg by mouth 2 (two) times a day as needed for anxiety . sertraline (ZOLOFT) 50 MG tablet Take 50 mg by mouth daily . valACYclovir (VALTREX) 500 MG tablet TAKE 1 TABLET BY MOUTH TWICE DAILY FOR 5 DAYS WITH OUTBREAKS AND THEN 1 DAILY FOR SUPPRESSION No current facility-administered medications for this visit. There are no Patient Instructions on file for this visit. documented in this encounter* Kaylynn Hylton PA-C - 08/07/2020 2:14 PM EST NATALYA Webb Notes: Chief Complaint Patient presents with Covid-19 Screening x3days. diarrhea, cough. Daughter had covid. Subjective: Eneida Priest is a 65 y.o. female being seen 08/07/20 for Chief Complaint Patient presents with Covid-19 Screening x3days. diarrhea, cough. Daughter had covid. HPI patient presents to urgent care with complaints of 3 days of nasal congestion, nonproductive cough and loose stool. She denies chest pain, shortness of breath, headache, nausea or vomiting. At this time she denies fever Review of Systems All systems reviewed and negative with the exception of above noted. Constitutional: As noted above HEENT: Noted above Respiratory: Negative shortness of breath and wheezing. Cardiovascular: Negative for chest pain and palpitations, leg edema. Gastrointestinal: Negative for abdominal pain, diarrhea, nausea and vomiting. Genitourinary: Negative for dysuria, flank pain, frequency and urgency. Musculoskeletal: Negative for arthralgias and myalgias. Allergic/Immunologic: Negative for immunocompromised state. Neurological: Negative for dizziness, numbness Hematological: Does not bruise/bleed easily. Psychiatric/Behavioral: The patient is not nervous/anxious. Histories: Current Outpatient Medications Medication Sig Dispense Refill sertraline (ZOLOFT) 50 MG tablet Take 50 mg by mouth daily . LORazepam (ATIVAN) 0.5 MG tablet Take 0.5 mg by mouth 2 (two) times a day as needed for anxiety . valACYclovir (VALTREX) 500 MG tablet TAKE 1 TABLET BY MOUTH TWICE DAILY FOR 5 DAYS WITH OUTBREAKS AND THEN 1 DAILY FOR SUPPRESSION No current facility-administered medications for this visit. Allergies Allergen Reactions Opioids-Meperidine And Related Other reaction(s): Intolerance patient only able to tolerate small doses of pain meds Diphenhydramine Other reaction(s): Other: See Comments heart racing Erythromycin Base Other reaction(s): GI Upset Past Medical History: Diagnosis Date Anxiety Cancer (HCC) Past Surgical History: Procedure Laterality Date SECTION, LOW TRANSVERSE SKIN BIOPSY Family History Problem Relation Age of Onset No Known Problems Mother No Known Problems Father Social History Socioeconomic History Marital status: Spouse name: Not on file Number of children: Not on file Years of education: Not on file Highest education level: Not on file Occupational History Not on file Social Needs Financial resource strain: Not on file Food insecurity Worry: Not on file Inability: Not on file Transportation needs Medical: Not on file Non-medical: Not on file Tobacco Use Smoking status: Never Smoker Smokeless tobacco: Never Used Substance and Sexual Activity Alcohol use: Not on file Drug use: Not on file Sexual activity: Not on file Lifestyle Physical activity Days per week: Not on file Minutes per session: Not on file Stress: Not on file Relationships Social connections Talks on phone: Not on file Gets together: Not on file Attends adventist service: Not on file Active member of club or organization: Not on file Attends meetings of clubs or organizations: Not on file Relationship status: Not on file Other Topics Concern Not on file Social History Narrative Not on file Social History Tobacco Use Smoking Status Never Smoker Smokeless Tobacco Never Used Social History Substance and Sexual Activity Drug Use Not on file Social History Substance and Sexual Activity Sexual Activity Not on file Objective: Pulse 85 Temp 98.5 F (36.9 C) (Tympanic) Ht 4' 11 Wt 54.4 kg (120 lb) SpO2 98% BMI 24.24kg/m Physical Exam Physical exam limited due to pandemic. Constitutional: Appears well-developed and well-nourished. No distress. HEENT: No scleral injection Head: Normocephalic and atraumatic. Cardiovascular: Rate reviewed Pulmonary/Chest: Effort normal, no conversational dyspnea Musculoskeletal: Normal range of motion, No tenderness, deformity or noted edema. Neurological: Alert and oriented to person, place, and time. No focal deficits appreciated. Skin: Skin is warm and dry. No rash appreciated on limited exam Psychiatric: Normal mood and affect, behavior is normal. Judgment and thought content normal. Test Results: Recent Results (from the past 168 hour(s)) COVID-19, Molecular Collection Time: 08/07/20 2:14 PM Specimen: Nasopharyngeal; Swab Result Value Ref Range SARS-CoV-2 Detected (A) Not Detected Internal Control Pass Procedure: Procedures Assessment/ Plan: Eneida was seen today for covid-19 screening. Diagnoses and all orders for this visit: COVID-19 Suspected 2019 Novel Coronavirus Infection - Covid-19/Influenza Order Algorithm Kaylynn Hylton PA-C 08/07/20 Discharged with appropriate COVID-19 instructions, quarantine information and strict return precautions. Discussed use of over the counter medications for symptomatic management and side effects of medications. Recommended taking all medications as prescribed and to stop medications if they develop any signs of an allergic reaction. Educated patient and/or guardian about signs and symptoms that would warrant further immediate evaluation. Recommended that they should return to Urgent Care or make an appointment with their family physician if symptoms persist or go to the ED immediately if they change or get acutely worse. Recommended follow up within the next week with their PCP or to get established with a PCP soon in order to follow up appropriately. 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 before we are able to contact you. You should receive a call from our COVID-19 results provider as soon as possible. If you test POSITIVE for COVID-19: Isolate until: - it has been 10 days since you developed symptoms AND - you have been without a fever (100.4 F) for at least 24 hours without the use of fever reducing medication AND - your symptoms are improving Isolation is when you test positive for COVID-19 and is meant to keep the infected person away fromall others, even in their own home. If you live with others, stay in a specific sick room or area and away from other people or animals, including pets. Use a separate bathroom, if available. Seek emergency medical care immediately if you develop worsening warning signs including: - trouble breathing - persistent pain or pressure in the chest - new confusion - inability to wake or stay awake - bluish lips or face It is not recommended by the CDC to have another COVID-19 test done in order to discontinue isolation or return to work/school. We can provide return to work and school documentation as needed. If you test NEGATIVE for COVID-19: If you are under a 14 day quarantine because of significant exposure defined as close contact with someone that has a laboratory confirmed infection from COVID- 19 or that person was diagnosed by a medical professional, then a negative COVID-19 test does not clear you from the 14 day quarantine. Youwere likely not clinically infectious at the time of the test. This does not mean that you will notget sick and develop symptoms. It is possible that you were in the early phase of the infection at the time of your test and you could be positive later. For these reasons: 1) If the test was due to having symptoms WITH significant exposure, you should remain in quarantine: - for the full 14 days AND - you have been without a fever (100.4 F) for at least 24 hours without the use of fever reducing medication AND - your symptoms are improving If you are unable to separate yourself completely from the COVID-19 positive person (i.e. parent caring for a child), CDC guidelines recommend you quarantine for 24 days (10 days from symptom onset of the COVID positive person PLUS 14 additional days). 2) If the test was due to symptoms WITHOUT significant exposure, you may return to work/school if: - you have been without a fever (100.4 F) for at least 24 hours without the use of fever reducing medication AND - your symptoms are improving When Do I Self-Quarantine? You should quarantine if you have had a significant exposure which is defined as having been in close contact (as defined below) with someone that has a laboratory confirmed infection from COVID-19 or that person was diagnosed by a medical professional. This includes contact within 48 hours prior to when the COVID-19 positive person developed symptoms. - Quarantine is used to keep someone who might have been exposed to COVID-19 away from others. - Quarantine helps prevent spread of disease that can occur before a person knows they are sick or if they are infected with the virus without feeling symptoms. - People in quarantine should stay home, separate themselves from others, monitor their health, andfollow directions from their state or local health department. What counts as close contact? - You were within 6 feet of someone who has COVID-19 for at least 15 minutes - You provided care at home to someone who is sick with COVID-19 - You had direct physical contact with the person (touched, hugged, or kissed them) - You shared eating or drinking utensils - They sneezed, coughed, or somehow got respiratory droplets on you When and How Will I Get Results? Tests performed in the clinic will be available within 15-20 minutes from initiation of test. If your test was sent out to the lab for testing, it could take anywhere from 1-5 days after your specimen is collected. The provider/practice who placed the order for your test will notify you of your results. - If you have an active [employer] account, and your COVID-19 test is negative (not detected), then you will be notified through your [employer] account. You should call the urgent care if you have any further questions. - If your COVID-19 test is positive (detected), you will receive a phone call to discuss your results and answer any questions you might have at that time. Please make sure [facility] has your updated phone number so we can contact you. [facility] will notify the [facility] of any positive results to comply with state regulations. What Happens After I Get Tested if I Develop Worsening COVID-19 Symptoms? All patients should self-quarantine at home until they receive their test results. While self-quarantining, contact your PCP or return to the urgent care if you develop any of the following: - A fever of 103 degrees F (39.4 C) or higher - A fever that lasts more than 3 days without medication - A fever that returns after being gone for more than 24 hours - Chest pain or difficulty breathing - A worsening of current symptoms For work concerns, please contact your employer's HR department. How Do I Self-Quarantine? - Stay home until 14 days after last exposure and maintain social distance (at least 6 feet) from others at all times - Avoid contact with people at higher risk for severe illness from COVID-19 - Self-monitor for symptoms: - Check temperature twice a day - Watch for fever (100.4F or higher), cough, shortness of breath, or other CDC recognized symptoms of COVID-19 If I test positive, what about those with which I have had close contact (household members, partners, close friends, etc)? Anyone with close contact (as defined above) within 48 hours prior to when the COVID-19 positive person developed symptoms should self-quarantine for 14 days as above. What Do I Do If I am Sick? Stay Home: If you are sick, stay home from work, school, public places, and social gatherings Social Distance: maintain 6 feet of distance from other people. Monitor Your Symptoms: If you develop fever, shortness of breath, confusion, or any respiratory symptoms, please notify your doctor immediately Cover Your Cough: Cough and sneeze into your shirt sleeve or inner elbow. Do not cough into your hands or into the air. If available, cough into a tissue and throw it into a trash can. Wash Your Hands: Wash hands often with soap and warm water and/or alcohol based hand apartment maintenance worker, scrubbing your hands for at least 20 seconds. Wash your hands after sneezing or coughing, after going to the bathroom, and before eating or drinking. Wear a Mask: Wear a face mask when around others. Always wear a face mask (if able) if you have to leave your home Don't Touch: avoid touching your eyes, nose, and mouth Don't Share: avoid sharing items with others as they can spread infection Call First: If you do need to seek urgent medical care, call the facility first to let them know you are on your way Other COVID Questions? 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) Groin pain, right Periumbilical abdominal pain Procedures CT ABD/PEL W IVCON CT ABD & PELVIS W/CONTRAST Alberto Sylvester APRN.NUCLEAR FUEL ENRICHMENT TECHNICIAN [address] [place] [address] Ct Imaging Referral ID Status Reason Start Date Expiration Date Visits Requested Visits Authorized [id number] Authorized Auto-Generat ed Referral 12/25/2021 02/08/2022 1 1 Referral ID Status Reason Start Date Expiration Date V isits Requested Visits Authorized [id number] Closed Auto-Generate d Referral 12/25/2021 02/08/2022 1 1 Specialty Diagnoses / Procedures Referred By Contac t Referred To Contact CT IMAGING Diagnoses 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) Abnormal CT of the chest Procedures CT CHEST W IVCON DIAGNOSTIC COMPUTED TOMOGRAPHY THORAX W/CONTRAST Alberto Sylvester APRN.NUCLEAR FUEL ENRICHMENT TECHNICIAN [address] [place] [address] Ct Imaging Referral ID Status Reason Start Date Expiration Date Visits Requested Visits Authorized [id number] Pending Review Auto-Generat ed Referral 01/22/2022 02/21/2023 1 1 Referral ID Status Reason Start Date Expiration Date Visits Requested Visits Authorized [id number] Pending Review Auto-Genera kirsten Referral Patient Cleared - Admin/Chair man/Directo r advise to proceed 01/22/2022 02/21/2023 1 1 Specialty Diagnoses / Procedures Referred By Contac t Referred To Contact CT IMAGING Diagnoses 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) Abnormal CT of the chest Lung nodules Procedures CT CHEST WO IVCON DIAGNOSTIC COMPUTED TOMOGRAPHY THORAX W/O Trisha Harvey MD [address] [place] [address] Ct Imaging Referral ID Status Reason Start Date Expiration Date Visits Requested Visits Authorized [id number] Pending Review Auto-Generat ed Referral 07/12/2023 1 1 Specialty Diagnoses / Procedures [facility]ING Diagnoses 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 diarrhea, co ugh. Daughter had covid. Reason Comments Sinus Problem sinus pressure, drai nage, cough, headache x 2 weeks Reason Comments Patient Update Reason Comments Established Patient Reason Comments Radiology CT Specialty Diagnoses / Procedures Referred By 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) Abnormal CT of the chest Procedures CT CHEST W IVCON DIAGNOSTIC COMPUTED TOMOGRAPHY THORAX W/CONTRAST Alberto Sylvester APRN.NUCLEAR FUEL ENRICHMENT TECHNICIAN [address] [place] [address] Ct Imaging Referral ID Status Reason Start Date Expiration Date Visits Requested Visits Authorized [id number] Pending Review Auto-Genera kirsten Referral Patient Cleared - Admin/Chair man/Directo r advise to proceed 01/22/2022 02/21/2023 1 1 Reason Comments Established Patient Reason Comments Results Reason Onset Date Comments Recheck 4 week follow up Immunizations 05/29/2022 Flu vaccination Reason Comments New Patient Abnormal Chest X-ray Specialty Diagnoses / Procedures Referred By Contac t Referred To Contact Pulmonary and Critical Care Medicine Diagnoses 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) Abnormal CT of the chest Procedures CONSULT TO PULM/CRITICAL CARE OFFICE/OUTPATIENT NEW HIGH MDM 60-74 MINUTES Alberto Sylvester APRN.NUCLEAR FUEL ENRICHMENT TECHNICIAN [address] [place] [address] Referral ID Status Reason Start Date Expiration Date V isits Requested Visits Authorized [id number] Closed PCP Requested Referral 03/12/2022 03/12/2023 1 1 Reason Comments Results Chest CT Specialty Diagnoses / Procedures Referred By Contac t Referred To Contact CT IMAGING Diagnoses 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) Abnormal CT of the chest Lung nodules Procedures CT CHEST WO IVCON DIAGNOSTIC COMPUTED TOMOGRAPHY THORAX W/O Trisha Harvey MD [address] [place] [address] [place] [id number] Referral ID Status Reason Start Date Expiration Date V isits Requested Visits Authorized [id number] Closed Auto-Generate d Referral 08/05/2022 09/19/2022 1 1 Reason Comments Fatigue Exposed to covid x 1 week, not feeling well wants tested INFORMATION SOURCE (unrecogn ized section and content) DATE CREATED AUTHOR AUTHOR'S ORGANIZ ATION 07/25/2023 [facility] Source Comments (unrecognize d section and content) In the event this informatio n is protected by the Federal Confidentiality of Alcohol and Drug Abuse Patient Records regulations: The Federal rules restrict any use of the information to criminally investigate or prosecute any alcohol or drug abuse patient.[facility] the event this information is protected by the Federal Confidentiality of Alcohol and Drug Abuse Patient Records regulations: The Federal rules restrict any use of the information to criminally investigate or prosecute any alcohol or drug abuse patient.[facility] the event this information is protected by the Federal Confidentiality of Alcohol and Drug Abuse Patient Records regulations: The Federal rules restrict any use of the information to criminally investigate or prosecute any alcohol or drug abuse patient.[facility] the event this information is protected by the Federal Confidentiality of Alcohol and Drug Abuse Patient Records regulations: The Federal rules restrict any use of the information to criminally investigate or prosecute any alcohol or drug abuse patient.[facility] HospitalIn the event this information is protected by the Federal Confidentiality of Alcohol and Drug Abuse Patient Records regulations: The Federal rules restrict any use of the information to criminally investigate or prosecute any alcohol or drug abuse patient.[facility] HospitalIn the event this information is protected by the Federal Confidentiality of Alcohol and Drug Abuse Patient Records regulations: The Federal rules restrict any use of the information to criminally investigate or prosecute any alcohol or drug abuse patient.[facility] HospitalIn the event this information is protected by the Federal Confidentiality of Alcohol and Drug Abuse Patient Records regulations: The Federal rules restrict any use of the information to criminally investigate or prosecute any alcohol or drug abuse patient.[facility] HospitalIn the event this information is protected by the Federal Confidentiality of Alcohol and Drug Abuse Patient Records regulations: The Federal rules restrict any use of the information to criminally investigate or prosecute any alcohol or drug abuse patient.[facility] HospitalIn the event this information is protected by the Federal Confidentiality of Alcohol and Drug Abuse Patient Records regulations: The Federal rules restrict any use of the information to criminally investigate or prosecute any alcohol or drug abuse patient.[facility] HospitalIn the event this information is protected by the Federal Confidentiality of Alcohol and Drug Abuse Patient Records regulations: The Federal rules restrict any use of the information to criminally investigate or prosecute any alcohol or drug abuse patient.[facility] HospitalIn the event this information is protected by the Federal Confidentiality of Alcohol and Drug Abuse Patient Records regulations: The Federal rules restrict any use of the information to criminally investigate or prosecute any alcohol or drug abuse patient.[facility] HospitalIn the event this information is protected by the Federal Confidentiality of Alcohol and Drug Abuse Patient Records regulations: The Federal rules restrict any use of the information to criminally investigate or prosecute any alcohol or drug abuse patient.[facility] HospitalIn the event this information is protected by the Federal Confidentiality of Alcohol and Drug Abuse Patient Records regulations: The Federal rules restrict any use of the information to criminally investigate or prosecute any alcohol or drug abuse patient.[facility] HospitalIn the event this information is protected by the Federal Confidentiality of Alcohol and Drug Abuse Patient Records regulations: The Federal rules restrict any use of the information to criminally investigate or prosecute any alcohol or drug abuse patient.[facility] HospitalIn the event this information is protected by the Federal Confidentiality of Alcohol and Drug Abuse Patient Records regulations: The Federal rules restrict any use of the information to criminally investigate or prosecute any alcohol or drug abuse patient.[facility] HospitalIn the event this information is protected by the Federal Confidentiality of Alcohol and Drug Abuse Patient Records regulations: The Federal rules restrict any use of the information to criminally investigate or prosecute any alcohol or drug abuse patient.[facility] HospitalIn the event this information is protected by the Federal Confidentiality of Alcohol and Drug Abuse Patient Records regulations: The Federal rules restrict any use of the information to criminally investigate or prosecute any alcohol or drug abuse patient.[facility] HospitalIn the event this information is protected by the Federal Confidentiality of Alcohol and Drug Abuse Patient Records regulations: The Federal rules restrict any use of the information to criminally investigate or prosecute any alcohol or drug abuse patient.[facility] HospitalIn the event this information is protected by the Federal Confidentiality of Alcohol and Drug Abuse Patient Records regulations: The Federal rules restrict any use of the information to criminally investigate or prosecute any alcohol or drug abuse patient.[facility] HospitalIn the event this information is protected by the Federal Confidentiality of Alcohol and Drug Abuse Patient Records regulations: The Federal rules restrict any use of the information to criminally investigate or prosecute any alcohol or drug abuse patient.[facility] Care Teams (unrecognized sec tion and content) 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 Start Date End Date Marissa Sandhu MD [address] [facility] [place] [place] [address] PCP - General Internal Medicine 12/08/18 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 Start Date End Date Marissa Sandhu MD [address] [facility] [place] [place] [address] PCP - General Internal Medicine 12/08/18 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 Start Date End Date Marissa Sandhu MD [address] [facility] [place] [place] [address] PCP - General Internal Medicine 12/08/18 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 Start Date End Date Marissa Sandhu MD [address] [facility] [place] [place] [address] PCP - General Internal Medicine 12/08/18 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 Start Date End Date Marissa Sandhu MD [address] [facility] [place] [place] [address] PCP - General Internal Medicine 12/08/18 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 Start Date End Date Marissa Sandhu MD [address] [facility] [place] [place] [address] PCP - General Internal Medicine 12/08/18 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 Start Date End Date Marissa Sandhu MD [address] [facility] [place] [place] [address] PCP - General Internal Medicine 12/08/18 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 Start Date End Date Marissa Sandhu MD [address] [facility] [place] [place] [address] PCP - General Internal Medicine 12/08/18 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 Start Date End Date Marissa Sandhu MD [address] [facility] [place] [address] PCP - General Internal Medicine 12/08/18 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 Start Date End Date Marissa Sandhu MD [address] [facility] [place] [place] [address] PCP - General Internal Medicine 12/08/18 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 Start Date End Date Marissa Sandhu MD [address] [facility] [place] [place] [address] PCP - General Internal Medicine 12/08/18 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 Start Date End Date Marissa Sandhu MD [address] [facility] [place] [place] [address] PCP - General Internal Medicine 12/08/18 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 Start Date End Date Marissa Sandhu MD [address] [facility] [place] [place] [address] PCP - General Internal Medicine 12/08/18 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 Start Date End Date Marissa Sandhu MD [address] [facility] [place] [place] [address] PCP - General Internal Medicine 12/08/18 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 This clinical summary was aggregated from multiple sources. Caution should be exercised in using it in the provision of clinical care. This summary normalizes information from multiple sources, and as a consequence, information in this document may materially change the coding, format and clinical context of patient data. In addition, data may be omitted in some cases. CLINICAL DECISIONS SHOULD BE BASED ON THE PRIMARY CLINICAL RECORDS. [facility]. provides no warranty or guarantee of the accuracy or completeness of information in this document.
== END | disposition home or self-care (01) ==
LOC: LABSPEC 16:34
PROVIDERS: PCP Internal Medicine; Referring Provider Nurse Practitioner Women's Health; Visit Provider Nurse Practitioner Women's Health
DX: N89.8 Other specified noninflammatory disorders of vagina (principal)
CPT/HCPCS: 87070; 87077; 87186; 87205

== ENCOUNTER → 2023-10-14 | Outpatient (CLI) | payer OTHER, SELFPAY ==
--- NOTE | 2023-10-14 08:30 | BI_ITS ---
MAMMOGRAPHY - BILATERAL SCREENING REASON FOR EXAM: Female, 68 years old. Routine annual screening examination. PERTINENT HISTORY: Non-contributory. TECHNIQUE: Digital bilateral breast margi (3D mammographic acquisition) in the CC and MLO projections. 2-D mediolateral oblique (MLO) and craniocaudad (CC) views of both breasts were obtained. CAD: Full Field Digital Mammography with Computer Added Detection was performed. COMPARISON: Comparison is made with prior study dated September 02, 2022 and May 23, 2021. FINDINGS: Breast Composition: There are scattered areas of fibroglandular density. There are no dominant masses or suspicious calcifications. No other significant abnormalities are identified. There has been no significant change since the prior study. BI/SCRN MAMM (CAD)W/MARGI BILAT IMPRESSION: Stable bilateral screening mammogram. Yearly follow-up mammogram recommended. (A) ASSESSMENT CATEGORY: BIRADS Category 1: Negative. A letter regarding these results will be sent to the patient by the facility within 30 days. Approximately 10% of breast cancers are not detected by mammography. A normal mammogram should not delay biopsy of a clinically suspicious abnormality. [id number] Electronically Signed: Juan Rivera MD at 17:23 EST ,
== END | disposition home or self-care (01) ==
LOC: OPBI 08:30
PROVIDERS: PCP Internal Medicine; Referring Provider Nurse Practitioner Women's Health; Visit Provider Nurse Practitioner Women's Health
DX: Z12.31 Encounter for screening mammogram for malignant neoplasm of breast (principal)
CPT/HCPCS: 77063; 77067

== ENCOUNTER → 2024-10-17 | Outpatient (CLI) | payer MEDICARE, SELFPAY ==
--- NOTE | 2024-10-17 08:44 | BI_ITS ---
PROCEDURE: SCRN MAMM (CAD)W/MARGI BILAT REASON FOR EXAM: F, Age 69 y/o, presents for annual screening mammogram.. TECHNIQUE: Bilateral screening digital breast tomosynthesis with 2D and 3D images. Computer aided detection. COMPARISON: 10/14/2023. FINDINGS: There are scattered areas of fibroglandular density. No suspicious masses, areas of developing architectural distortion, or suspicious calcifications. BI/SCRN MAMM (CAD)W/MARGI BILAT IMPRESSION: BI-RADS 1: NEGATIVE. RECOMMEND ANNUAL MAMMOGRAPHIC SCREENING. Follow-up code: Routine Follow-up The patient will be notified of the results by letter. Reading Location: [id number]
== END | disposition home or self-care (01) ==
LOC: OPBI 08:43
PROVIDERS: PCP Internal Medicine; Referring Provider Nurse Practitioner Women's Health; Visit Provider Nurse Practitioner Women's Health
DX: Z12.31 Encounter for screening mammogram for malignant neoplasm of breast (principal)
CPT/HCPCS: 77063; 77067